=== PATIENT | male | born 1955 | race Caucasian/White ===

== ENCOUNTER → 2020-01-21 14:13 | Outpatient (CLI) | payer OTHER, SELFPAY ==
[2020-01-21 14:34] LABS: Anion Gap 2 (5-15); BUN 69 mg/dL (7-18); BUN/Creat Ratio 51.5 RATIO (10-20); Calcium,Total 8.1 mg/dL (8.5-10.1); Chloride 98 mmol/L (98-107); Creatinine, Serum 1.34 mg/dL (0.70-1.30); EST Glomerular Filtration Rate 57 mL/min (>60); Est Glom Filt Rate - Afr Amer 69 mL/min (>60); Glucose 117 mg/dL (74-106); Potassium 4.8 mmol/L (3.5-5.1); Sodium Level 139 mmol/L (136-145)
== END ==
PROVIDERS: PCP Family Medicine
DX: I25.10 Atherosclerotic heart disease of native coronary artery without angina pectoris (principal); M86.8X8 Other osteomyelitis, other site
CPT/HCPCS: 80048

== ENCOUNTER 2020-01-22 20:17 | Emergency (ER) | payer OTHER, SELFPAY ==
[2020-01-22] VITALS (17 sets, daily range): BP systolic 71–126; BP diastolic 25–81; PULSE 84–94; RESP 14–24; TEMP 36.3–37; O2SAT 90–98; BMI 42.0
--- NOTE | 2020-01-22 20:42 | EKG12_ITS ---
Test Reason : HYPOTENSION Blood Pressure : / mmHG Vent. Rate : 088 BPM Atrial Rate : 088 BPM P-R Int : 164 ms QRS Dur : 070 ms QT Int : 370 ms P-R-T Axes : 048 008 177 degrees QTc Int : 447 ms Normal sinus rhythm Possible Left atrial enlargement Possible Inferior infarct , age undetermined Abnormal ECG Confirmed by KAREL LEMUS, PETRA ([id number]), video tape editor GUILLERMINA FAJARDO ([id number]) on 01/25/2020 10:36:01 AM Referred By: MELISSA Confirmed By:PETRA VINSON MD
--- NOTE | 2020-01-22 20:49 | ED.VISSUMM ---
- ER Visit Summary Date of Service: 01/22/20 Chief Complaint: Hypotension and syncope at home History of Present Illness: The patient is a 64 M with past medical history of CAD with triple bypass at [facility] he had extensive postoperative course in which he coded. He developed a sternal infection. And intermittent episodes of A. fib for which he was cardioverted. He now has a wound VAC on. And he is anticoagulated on Eliquis. Reportedly according to his he has had diarrhea last couple days. And he was hypotensive today. He is also on iron and has dark stools. He denies any chest pain. He denies any fever. He denies any dysuria. Physical Examination: Older male initial blood pressure 89/36 temperature 97.5. 91% on oxygen. Relative hypoxia on oxygen. HEENT exam unremarkable. Neck nontender no JVD. Lungs clear to auscultation bilaterally. Heart regular rhythm rate about 90 no murmur. Chest wall sternotomy wound but appears to be healing with a wound VAC in place. Abdomen obese but soft nontender normal bowel sounds no peritoneal signs. No signs of obstruction. Extremities 2+ pitting edema both lower extremities which have been there for some time according to the patient that is not new. Neurologically is awake alert. He is answering questions and following commands. He has no focal motor deficits. Test Results: Chest x-ray status post tenotomy. Portable 1 view shows no acute abnormality. Elevated right hemidiaphragm. Otherwise unremarkable. No infiltrate. Relatively normal cardiac silhouette. EKG is normal sinus rhythm rate 88 unchanged from prior EKG from 2015. CBC white count of 16.8 hemoglobin of 3.4 consistent with acute GI bleed. Electrolytes gap at 9 BUN of 104 creatinine of 1.83 consistent with dehydration and upper GI bleed PT/INR of 20 and 1.8 he is on Eliquis this is not unexpected. UA normal. Lactic acid elevated 3.8. Troponin normal. Emergency Department Course and Treatment: Gentleman with extensive course after triple bypass surgery at [facility]. He is anticoagulated. Has had recent diarrhea. My concern for the hypotension is one potential GI bleed versus dehydration from diarrhea versus infection and/or possible sepsis. They be very unlikely to be a PE due to that he is on the Eliquis. He is also not having chest pain. And currently appears to be in a normal sinus rhythm so I do not think it secondary to his recent A. fib. Patient is going to receive a half a liter of normal saline bolus. Labs and x-ray and EKG. He will also be typed and crossed. Patient I went over all his test results. My concern is for his severe anemia secondary to GI bleed which I think is upper due to his elevated BUN. Also I did a rectal exam he is pitch black stool even with him being on iron I think this is a GI bleed. Patient has been typed and crossed for 6 units of blood he is currently receiving his first 2 units currently his pressure remains hypotensive with a systolic around 90 but he is awake alert and talking. He has had no nausea, vomiting or abdominal pain. Has had no hematemesis. Also due the patient being on Eliquis I feel the risk benefits of reversing this are more beneficial to him than the risk of clotting issue developing but that is a possibility. As far as I know he has no prosthetic valves. I have ordered Kcentra. I discussed this with the pharmacist. Treatment Plan: Currently I am trying to find a hospital that I could accept this patient. He is in need ICU care for the GI bleed. He will need gastroenterology. He will probably need cardiothoracic on backup even though I do not think that is an acute problem. I discussed his all with the patient and will with his family. Nurses of His up-to-date and she is on her way to the emergency department. I have spoken to her via phone. Where he had his surgery done at [facility] they currently have no beds. I am trying other facilities in the [facility] and other hospitals in [place]. Patient showing significant improvement after 4 units of blood transfusion. His current pressure is around 100 systolic. He is awake and alert. His is in the emergency department I discussed all his test results with her and the plan. I think we found the receiving hospital working with the [facility] will accept him. I spoken to their vp corporate partnerships. He will be transferred by helicopter [facility] transfer service and also [facility] working together to see who will actually provide transport for the patient. I again spoke to clear clients transport line. Due to the weather they are unable to fly. They are sending a ground critical care transport team down. Disposition: Transfer to [facility] ICU Impression: Acute hypotension secondary to GI bleed Acute severe anemia secondary to upper GI bleed Transfused 4 units of blood and receiving a 5th unit Acute syncope at home Status post triple bypass with sternal wound infection Anticoagulated on Eliquis History of A. fib This note was generated with [employer] dictation software. It may contain incorrect words, spelling, and punctuation that were not noted in review of the chart prior to signing ED Disposition - Plan for ED Patient: Referrals: Jose Luis Avalos MD [Primary Care Provider] -
[2020-01-22 21:02] LABS: Absolute Lymphocyte Count 1.44 X10^3/uL (0.83-4.51); Absolute Neutrophil Count 13.8 X10^3/uL (2.0-7.7); Basophil# 0.02 X10^3/uL; Basophil% 0.1 % (0-1); Eosinophil# 0.07 X10^3/uL; Eosinophils% 0.4 % (0-5); Hematocrit 12.3 % (40-54); Lymphocyte # 1.44 X10^3/ul (4.0); Lymphocyte % 8.6 % (19-41); Mean Corp Hgb Conc 27.6 g/dL (32-36); Mean Corpuscular Hgb 29.3 pg (27.0-32.0); Mean Platelet Vol. 9.7 fl (6.2-12.0); Monocyte# 1.12 X10^3/uL; Monocyte% 6.7 % (0-10); NRBC Flagged by Analyzer 1.9 % (0-5); Neutrophil % 82.4 % (47-70); POSITIVE COUNT YES; POSITIVE MORPHOLOGY YES; Platelet Count 239 K/mm3 (150-450); RBC Distribution Width CV 19.4 % (11.6-14.6); RBC Distribution Width SD 68.6 fl (35.1-43.9); Red Blood Count 1.16 M/mm3 (4.6-6.2); White Blood Count 16.8 K/mm3 (4.4-11.0)
[2020-01-22 21:03] LABS: Mucous, Urine 0 SEEN /hpf (<or=2+); Red Blood Cells-Urine 0 SEEN /hpf (0-5); Squamous Epithelial Cells - UA 0 SEEN /hpf (0-5); White Blood Cells 0 SEEN /hpf (0-5)
[2020-01-22 21:04] LABS: Differential Indicated SCAN CRITERIA MET; Hemoglobin 3.4 g/dL (13.0-16.5)
[2020-01-22 21:05] LABS: International Normalized Ratio 1.8; Prothrombin Time (Protime)PT. 20.1 SECONDS (11.7-14.9)
[2020-01-22 21:07] LABS: ALB/GLOB Ratio 0.6 RATIO (0.9-2.4); AST(SGOT) 9 U/L (15-37); Alanine Aminotransfer ALT/SGPT 16 U/L (16-61); Albumin, Serum 1.8 g/dL (3.2-5.0); Alkaline Phosphatase 80 U/L (45-117); Anion Gap 9 (5-15); BUN 104 mg/dL (7-18); BUN/Creat Ratio 56.8 RATIO (10-20); Calcium,Total 7.8 mg/dL (8.5-10.1); Chloride 99 mmol/L (98-107); Creatinine, Serum 1.83 mg/dL (0.70-1.30); EST Glomerular Filtration Rate 40 mL/min (>60); Est Glom Filt Rate - Afr Amer 48 mL/min (>60); Estimated Creatinine Clearance 38.63 ml/min; Glucose 159 mg/dL (74-106); Potassium 4.6 mmol/L (3.5-5.1); Protein, Total 4.8 g/dL (6.4-8.2); Sodium Level 140 mmol/L (136-145)
[2020-01-22 21:10] LABS: Color, Urine Yellow (Yellow); Glucose, Dipstick Normal (Normal); Ketone-Dipstick Negative (Negative); Leukocyte Esterase-Dipstick Negative /ul (Negative); Nitrite-Dipstick Negative (Negative); Occult Blood-Urine Negative /ul (Negative); Protein-Dipstick Negative (Negative); Urine Bilirubin Dipstick Negative (Negative); Urine Clarity Clear (Clear); Urine Urobilinogen Normal (Normal)
--- NOTE | 2020-01-22 21:11 | ED.RN ---
HGB OF 3.4 AND BUN OF [address] LORD. VERBALIZES UNDERSTANDING AND NEW ORDERS ENTERED
[2020-01-22 21:13] LABS: Lactic Acid 3.8 mmol/L (0.4-1.9)
--- NOTE | 2020-01-22 21:15 | RAD_ITS ---
STUDY: X-RAY CHEST REASON FOR EXAM: Male, 64 years old. Hypotension, triple bypass surgery 12/11, COPD. TECHNIQUE: 1 view COMPARISON: None. FINDINGS: Right PICC ends in the distal superior vena cava. Mild elevation right diaphragm. Mild bibasilar atelectatic versus chronic changes. Upper mid lung zones are clear. Normal size heart. Status post prior midline sternotomy. Normal visualized pulmonary arteries. Mild elongation of the thoracic aorta. Normal visualized thoracic spine. Normal visualized ribs, clavicles, and shoulders. There is no demonstrated abnormality of the visualized soft tissue structures of the upper abdomen. RAD/Chest 1 View (Portable) IMPRESSION: Limited inspiration with a mild chronic elevation of the right diaphragm. Mild bibasilar chronic versus atelectatic changes without other major consolidation, other infiltrates or evidence of substantial pleural effusion. Normal cardiac size status post prior midline sternotomy without pulmonary venous congestion. Electronically Signed: Rajni Monroe MD at 21:38 EST , Service support ,
[2020-01-22 21:16] LABS: Bacteria RARE /hpf (None Seen)
[2020-01-22 21:29] LABS: Differential Comment SCANNED
--- NOTE | 2020-01-22 22:05 | ED.RN ---
CONTACTED - JONATHAN AND GAVE UPDATE. GAVE PERMISSION TO COME VISIT WITH HER IN ED [facility].
[2020-01-22] MEDS: DiphenhydrAMINE 50 MG/ML Syringe 25 MG IV (22:09)
[2020-01-22 22:35] LABS: Hematocrit 19.2 % (40-54); Mean Corp Hgb Conc 30.2 g/dL (32-36); Mean Corpuscular Volume 102.7 fL (80-94); Mean Platelet Vol. 9.8 fl (6.2-12.0); POSITIVE COUNT YES; Platelet Count 234 K/mm3 (150-450); RBC Distribution Width CV 16.8 % (11.6-14.6); RBC Distribution Width SD 59.5 fl (35.1-43.9); Red Blood Count 1.87 M/mm3 (4.6-6.2); White Blood Count 17.9 K/mm3 (4.4-11.0)
[2020-01-22 22:38] LABS: Scan Indicated on CBC? Y/N NO
[2020-01-22 22:39] LABS: Hemoglobin 5.8 g/dL (13.0-16.5)
[2020-01-22] MEDS: HUMAN PROTHROMBIN COMPLX IV (22:52)
[2020-01-22] MEDS: VIAFLEX IV (22:52)
[2020-01-23 00:06] VITALS: BP 98/67; PULSE 83; RESP 24; TEMP 37
[2020-01-23 00:10] VITALS: BP 117/81; PULSE 86; RESP 22; TEMP 36.9
[2020-01-23 00:21] VITALS: BP 102/71; PULSE 87; RESP 24; TEMP 36.8
[2020-01-23 00:52] LABS: Reflex Lactate? Y
[2020-01-23 01:00] VITALS: BP 107/56; PULSE 85; RESP 24
[2020-01-23 02:13] VITALS: BP 90/56; PULSE 87; RESP 24; TEMP 36.8
[2020-01-23 13:38] LABS: Pathologist Review Reviewed
[2020-01-23 13:38] LABS: Pathologist Review Reviewed
== END 2020-01-23 02:15 | disposition short-term general hospital (02) ==
PROVIDERS: Emergency Provider Emergency Medicine; PCP Family Medicine
DX: I95.9 Hypotension, unspecified (principal); K92.2 Gastrointestinal hemorrhage, unspecified; D50.0 Iron deficiency anemia secondary to blood loss (chronic); R55 Syncope and collapse; I25.10 Atherosclerotic heart disease of native coronary artery without angina pectoris; I48.91 Unspecified atrial fibrillation; J44.9 Chronic obstructive pulmonary disease, unspecified; Z79.01 Long term (current) use of anticoagulants
CPT/HCPCS: 36430; 36592; 51702; 71045; 80053; 81001; 83605; 84484; 85025; 85027; 85610; 86850; 86900; 86901; 86920; 86921; 86922; 87040; 87426; 93005; 96365; 96375; 99285; C9132; J7030; J7040; J7050; P9016; A4216; J3490

== ENCOUNTER → 2020-03-26 13:02 | Outpatient (CLI) | payer OTHER, SELFPAY ==
[2020-01-22 20:20] VITALS: BMI 42.0
--- NOTE | 2020-03-26 13:06 | CR.ITP_ITS ---
Diagnosis - General Information Admitting Diagnosis: S/P CABG @ [facility] DR. MILTON Secondary Diagnosis: CAD, EMPHYSEMA, HTN, HLD, PAROXYSMAL ATRIAL FIBRILLATION POST OP CABG. Personal Learning Style:: Audio/Visual, Written Barriers to Learning: Vision Impairment Stage of change r/t lifestyle modifications:: Contemplation Gave educational material for:: Treating Heart Disease, Emotions & Heart Di sease, Stress Management & Relaxation, Sleep Disorders & Heart Disease, How The Heart Works, What it means to have Heart Disease, How Coronary Artery Disease is Diagnosed, Heart Procedures, What Heart Medications Do, Risk Factors & Modifications, Living an Active Life, Nutrition - Education/Goals Individual Counseling: Initial Assessment: Abnormal Cholesterol Levels, High Blood Pressure, Overweight/Obesity, Hypertension, Sedentary Lifestyle Cardiac Rehabilitation Goals: 1. Maintain the individual as the primary focus of care. 2. To improve the patient's quality of life. 3. Identification of cardiac risk factors and provide cardiac risk factor management. 4. Enhance the psychosocial status of the patient. 5. Reconditioning enough to allow the patient to resume customary activities. 6. Control symptoms of cardiac disease Personal Goals: Initial Assessment: Improve management of stress and emotions, Improve energy level, Participate in home exercise program, Get back to work, or to resume activities faster, Improve knowledge of cardiac disease, Improve muscle strength and endurance, Improve diet and eating habits (eat healthier), Control risk factors (learn risk factor modification) Scale for measuring improvement of personal goals: Enter appropriate number in Comments. 2 = Unchanged. 3 = Slightly Better. 4 = Moderate Improvement. 5 = Met my Goal - Diagnosis & Disease Process Outcomes/Goals: Pt IDs own risk factors & lifestyle modifications by Session 10, Verbalizes symptoms of angina & response by session 3., Pt independently manages Plan/Interventions: Assist Pt to ID & engage in lifestyle modification to reduce CVD risk, Instruct on individual risk factors, Review symptoms of angina & emergency actions, Review secondary diagnosis & identify educational needs. - Safety Referral to Physical Therapy: No Referral to [facility] Case Management: No Fall Risk Assessed:: Yes Assistive Devices:: None Exercise - Initial Assessment - Visit Date of Eval: 03/26/20 Session #:: 0 - PRE-CARDIAC REHAB Mets: Pre-: >5 METS for 30 minutes by discharge - Physician Prescribed Exercise Modalities: Treadmill, Airdyne, NuStep, SciFit Frequency: 3x/week for 12 weeks [36 sessions] Intensity: 60-80% of age predicted maximum heart rate reserve Target Heart Rate:: 102-133 Resting Blood Pressure: 160/94 EKG Type: NORMAL SINUS RHYTHM - Outcomes & Goals Goals:: Verbalizes understanding of THR, RPE & goal METS by session 6, Documents in home exercise log/reports 30 min aerobic 5 day/wk by DC, Demonstrates accurate pulse taking by DC - Intervention & Plan Exercise Program Goals: Instruct on personal THR & RPE, Instruct on MET level & personal MET goal, Show patient to take own pulse /validate performance until accurate, Instruct on home exercise - Physical Activity Home Exercise Physical Activity - Home Exercise: Safe Exercise, Warm-up, Self-monitoring, Cool-Down, Home Exercise > 30 min Daily, Sitting Time <3 hours/daily - Outcomes & Goals Outcomes/Goals: Demonstrates correct Warm-up/exercise Cool-Down (S3) if = 2.5 METs, Verbalizes symptoms of exercise intolerance by Session 3 (S3), Demonstrate safe equipment use (S3) & follows exercise prescrition (6) - Intervention & Plan Plan/Intervention: Instruct warm-up & cool-down if exercising at > 2 METs, Instruct on symptoms of exercise intolerance & actions to take, Instruct & monitor on saf, Assess intial functional capacity & safety risk Nutrition - Initial Assessment - Program Goals Nutrition Program Goals: LDL <100 optimal. 100 - 129 Near optimal. 130 - 159 Borderline High. 160 - 189 High. Total Cholesterol <200 desirable. 200 - 239 Borderline High. >/= 240 High. HDL < 40 Low >/=60 High. Triglycerides <150 desirable. <199 optimal. VlDL 5 - 40. HgbA1C <7%. BMI <25 Patient has diagnosis of Hyperlipidemia (ICD E78)?: Yes - Visit Date of Assessment:: 03/26/20 Session #:: 0 - PRE-CARDIAC REHAB - Cholesterol/Lipids Triglycerides (mg/dL): 60 - 08/06/2019 Total Cholesterol (mg/dL): 150 LDL Cholesterol (mg/dL): 115 HDL Cholesterol (mg/dL): 36 Determine presence & major risk factors that modify LDL goal: Hypertension or hypertensive medication, Low HDL cholesterol <40 mg/dL*, Family history of premature CHD in Male < 55 years: female <65 yearsFa, Age men > 45 years; women >/= 55 years Outcomes/Goals: Pt IDs own risk factors & lifestyle modifications by Session 10, Verbalizes symptoms of angina & response by session 3., Pt independently manages Intervention/Plan: Instruct on personal lipid levels & lipid goals/NCEP guidelines, Instruct on cholesterol Referral to dietitian:: Yes - Diabetes (Other Core Measures) Diabetes Type: Not Applicable - Weight Mgt (Other Care) Not Applicable: No Height: 5 ft 7 in Weight:: 244 lb BMI: 38.2 Diagnosis Overweight/Obesity BMI> 30% ICD-10 E66: Yes Diagnosis High BMI/Morbid Obesity BMI> 35% ICD-10 Z68: Yes Outcomes/Goals: Pt sets, maintains & shows weight loss goal & trend during rehab Intervention/Plan: Instruct on ideal BMI & set weight loss goal w/patient, Assist pt to ID & incorporate diet changes for weight loss by S9, Refer to Structured Weight Loss program as appropriate, Encourage goal of using 250- 300dcal per session for weight loss - Healthy Eating Habits Will attend diet classes:: Yes Outcomes/Goals:: Consume diet rich in vegs,fruits,whole grain/high fiber,fish,lean meat, Limit sat/trans fats,cholesterol & added salts & sugars Intervention/Plan:: Assess current eating habits - Education Gave educational materials for:: Healthy eating Medical - Initial Assessment - Visit Date of Eval: 03/26/20 Session #:: 0 - PRE-CARDIAC REHAB - Medication Compliance Preventative Medication(s):: Aspirin, ANTOINETTE inhibitor, Statin/lipid, Beta yany, Eliquis H/O mental health issues: depression, anxiety, or addiction?: Yes Doesn?t believe in the benefits of treatment?: No Believes medications are unnecessary or harmful?: No Has a concern about medication side effects?: No Expresses concern over the cost of medications?: No Outcomes/Goals: Verbalizes medications,desired effect & common side effects @ DC, Pt self-reports following medication regimen, Keeps card in wallet w/medications listed by DC Interventions/plans: Instruct on medication effects & side effects, Review medication list w/patient every two weeks, Instruct importance of taking meds as ordered & assist problem solving - Tobacco Use Tobacco Use: Cigarettes How long ago did you quit using tobacco products?: Less than 6 months ago How many cigarettes do you smoke per day?: 15 Years Smokin Do you use smokeless tobacco?: No Outcomes/Goals: Smoking cessation achieved or maintained by discharge, Identify aids/strategies for achieving smoking cessation by session 6 Interventions/plan: Instruct on effects of smoking & provide smoking cessation resource, Assist pt to set quit date & provide encouragement, Assist pt to develop strategies to achieve/maintain quit date, Assist pt w/nicotine replacement & medication for cessation success - Hypertension Hypertension Diagnosis:: Hypertension ICD-10 I10 Resting Blood Pressure:: 160/94 [place] [employer] Hypertension Guidelines: [place] [employer] Hypertension Guidelines. Normal BP Less than 120/80. Elevated BP 120/80. Hypertension Stage 1: BP 130-139/80-89. Hypertesnion Stage 2: BP 140 or higher/90 or higher. Hypertension Crisis: BP higher than 180/120 Outcomes/Goals: Able to verbalize/achieve optimal blood pressure <130/80, Incorporates diet changes & exercise for blood pressure control by DC Interventions/plan: Instruct on optimal blood pressure, hypertension & medications, Instruct on effects of sodium, alcohol, stress, exercise &hypertens ion - Tobacco Cessation Referral Smoking Cessation Referral:: Yes - NEEDS REINFORCED Individual Education/Counseling:: Yes Education Schedule Given:: Yes Psychosocial - Initial Assess - VIsit Date of Eval: 03/26/20 Session #:: 0 - PRE-CARDIAC REHAB Not Applicable: No History of previous Mental disease:: Yes History of Emotional Disorders: Depression Self-reported stressors: Medical/Health, Recent Illness - Target Goals Target Goals: Assess presence or absence of depression. Using a valid screening tool, maximizes coping skills. Positive support system - Psychosocial Test Tool Used:: Shiraans Rubio QOL Cardiac, PHQ-9 Questionnaire phq-9 Severity: Severity. 1-4 Minimal Depression. 5-9 Mild Depression. 10-14 Moderate Depression. 15-19 Moderately Sever Depression. 20-27 Severe Depression. Rule: - Referral to Behavioral Health PS - Interventions: Yes Attend Stress Management Classes, No Referral to Behavioral Health if PHQ-9 score >9:, No Referral to [facility], No Referral to Physician if PHQ-9 if score is 5-9: - Outcomes/Goals: See list Psychosocial Outcomes/Goals:: ID's personal stressors & 2 strategies to manage stress by discharge - Intervention/Plan: See List Interventions/Plan:: Assess stressors,coping strategies & signs of derpression on admission, Instruct/assist pt to develop coping & personal stress Mgt strategies, Instruct patient to recognize signs & symptoms of depression, Instruct patient to recog Patient Health Questionnaire Initial Assessment 1. Little interest or pleasure in doing things: More than half the days 2. Feeling down, depressed, or hopeless: Not at all 3. Trouble falling or staying asleep, or sleeping too much: More than half the days 4. Feeling tired or having little energy: More than half the days 5. Poor appetite or overeating: More than half the days 6. Feeling bad about yourself -- or that you are a failure or have let yourself or your family down: More than half the days 7. Trouble concentrating on things, such as reading the newspaper or watching television: Not at all 8. Moving or speaking so slowly that other people could have noticed. Or the opposite - being so fidgety or restless that you have been moving around a lot more than usual: Several days 9. Thoughts that you would be better off , or of hurting yourself in some way: Several days How difficult have these problems made it for you to do your work, take care of things at home, or get along with other people?: Somewhat difficult - Patient could benefit from counseling or physician intervention for depression indicated on PHQ-9 Total Score: 12 EASTON-Q SV Test - Statements CAD is a disease of the arteries in the heart: True Examples of risk factors for heart disease: True Angina is chest pain or discomfort: I Don't Know The benefits of resistance training include: True Eating more meat and dairy products: True Anti-platelet medications such as aspirin are important: I Don't Know The only effective way to manage stress: True An exercise warm-up slowly increases heart rate: True Prepared, processed foods usually have high sodium: True Depression is common after a heart attack: I Don't Know The statin medications lower cholesterol: False To control blood pressure, lower the amount of sodium: I Don't Know If someone gets chest discomfort during walking: False Transfats are partially hydrogenated vegetable oils: True Sleep apnea that is not treated increases the risk: I Don't Know To control cholesterol, one should become a vegetarian: True Someone knows if he/she is exercising at the right level: I Don't Know Diabetes cannot be prevented with exercise & health eating: True Stress is a large risk for heart attack: True A diet that can help lower blood pressure is rich in: True - Total Score Total Correct Responses: 8 Self-Efficacy Initial Assessment We would like to know how confident you are in doing certain activities. Please select your confidence level for:: Select your confidence level for the following using the scale 1-10 where 1 is not at all confident and 10 is totally confident. Your score is the average of all 6 responses. Fatigue: How confident are you that you can keep the fatigue caused by your disease from interfering with the things you want to do? Select Number: 9 Physical Discomfort or Pain: How confident are you that you can keep the physical discomfort or pain of your disease from interfering with the things you want to do? Select Number: 10 Emotional Distress: How confident are you that you can keep the emotional distress caused by your disease from interfering with the things you want to do? Select Number: 10 Other Symptoms or Health Problems: How confident are you that you can keep other symptoms or health problems from interfering with the things you want to do? Select Number: 8 Different Tasks and Activities: How confident are you that you can do the different tasks and activities needed to manage your health condition so as to reduce your need to see a doctor? Select Number: 8 Medication: How confident are you that you can do things other than just taking medication to reduce how much your illness affects your everyday life? Select Number: 9 Total Score:: 9 Nutrition Survey - Nutrition Survey Instructions Scoring Instructions: Scoring is as follows: Yes = 1 points. No = 0 point. Patient score that is >/=12 is considered to be at potential nutritional risk and could benefit from a referral to a registered dietitian. - Nutrition Survey Initial Have you lost >10 lbs over the past 2 months without trying?: Yes Are you following a special diet at home for diabetes, low fat, or low salt?: Yes Are you interested in meeting with a dietitian for help understanding your diet?: Yes Do you eat less than 3 meals a day?: Yes Do you eat fatty meats (ruggiero, sausage, ribs, etc), fried foods, desserts, large amounts of salad dressings, margarine, butter, or cheese most days?: Yes Do you have food allergies? [Enter types in comment field]: No Do you eat in restaurants more than 3 times a week?: Yes Do you season food with salt, seasoning salt, or garlic salt?: No Do you used canned, boxed, frozen meals, or soups, seasoning packets?: Yes Total Score:: 7
--- NOTE | 2020-03-26 13:06 | CR.HP_ITS ---
CR - History & Physical - General Arrival date:: 03/26/20 Arrival time:: 13:07 Date of Referral:: 03/21/20 Date of CR Evaluation:: 03/26/20 Referring Physician: DR. ANTONINA / DR. MILTON Primary Diagnosis: S/P CABG - History of Present Cardiac Event Onset Date: Enter Onset Date of cardiac illnesses in Comment field below Coronary Artery Bypass Graft:: Yes - 12/12/2019 Were there any complications?: Back in ICU after 27 days due to GI bleed, paroxysmal atrial fib w/cardiove - Medications Home Medications: Ambulatory Orders Medication Instructions Recorded Acetaminophen [Tylenol Extra 1,000 mg PO Q8H PRN 01/22/20 Strength] Albuterol Inhaler [Ventolin Hfa 2 puff INHALATION Q4H PRN PRN 01/22/20 (SP)] Amiodarone HCl 400 mg PO DAILY 01/22/20 Apixaban [Eliquis] 5 mg PO BID 01/22/20 Ascorbic Acid 500 mg PO BID 01/22/20 Atorvastatin Calcium [Lipitor] 40 mg PO QHS 01/22/20 Ertapenem Sodium [Ertapenem] 1 gm IV DAILY 01/22/20 Ferrous Sulfate 325 mg PO DAILY 01/22/20 Folic Acid 1 mg PO DAILY 01/22/20 Furosemide [Lasix] 80 mg PO BIDLX 01/22/20 Metoprolol Succinate [Toprol Xl] 50 mg PO DAILY 01/22/20 Polyethylene Glycol 3350 [Miralax] 17 gm PO DAILY 01/22/20 Potassium Chloride 20 meq PO DAILY 01/22/20 Sennosides/Docusate Sodium 1 ea PO BID 01/22/20 [Senna-Docusate Sodium Tablet] Sitagliptin Phosphate [Januvia] 100 mg PO DAILY 01/22/20 Tiotropium [place] [Spiriva 4 gm IH DAILY 01/22/20 Respimat] Vancomycin HCl in 5 % Dextrose 1.5 gm IV DAILY 01/22/20 [Vancomycin 1.5 Gram/250 ml-D5w] traMADol [Ultram (G)] 50 mg PO Q6H PRN PRN 01/22/20 Albuterol IH (ProAir) [Proair Hfa 1 - 2 puff INHALATION Q4H PRN PRN 03/26/20 (SP)Vent Pts] Amiodarone HCl [Cordarone] 200 mg PO DAILY 03/26/20 Apixaban [Eliquis] 5 mg PO BID 03/26/20 Atorvastatin Calcium [Lipitor] 40 mg PO QHS 03/26/20 Carvedilol 50 mg PO BID 03/26/20 Guaifenesin [Mucinex] 600 mg PO Q12H 03/26/20 Tiotropium [place] [Spiriva 4 gm IH 03/26/20 Respimat] - Allergies Allergies/Adverse Reactions: Allergies No Known Allergies Allergy (Verified 01/22/20 20:19) - Sleep Disorder Evaluation Hx of Sleep Apnea: No Do you snore loudly (louder than talking or can be heard through closed doors)?: No Do you often feel tired/ fatigued/ sleepy during daytime?: Yes - only since the surgery Has anyone observed you stop breathing during sleep?: No History of Hypertension (for STOP score): Yes STOP Results: Positive Advanced Directives - Advanced Directives Power of Grid Trimmer: Yes - is Durable POA Healthcare for patient Living Will: No Advance Directives Information Provided: No Advance Directives on File: No DNR Order?:: No - MOLST See MOLST form: No Past Medical History - Covid-19 Screening Fever: No Unexplained muscle aches: No Current respiratory symptoms: Yes - H/O EMPHYSEMA shortness of breath w/activity Upper respiratory infections symptoms: No Gastro-intestinal symptoms: Yes - recent GI bleed [id number] symptoms: No Has tested positive for COVID-19 in last 30 days: No 65 years or older:: No Lives in Assisted Living facility:: No Has a chronic lung disease or moderate to severe asthma:: Yes Has a serious heart condition:: Yes Immunocompromised:: Yes Severely obese (Body Mass Index of 40 or higher):: Yes Diabetic:: No Has chronic kidney disease undergoing dialysis:: Yes Has liver disease:: No - Past Medical Illness Medical History: Past Medical History (Last Updated 03/26/20 @ 13:31 by Osmin Muhammad, CRYSTAL REPORT DEVELOPER, SHEET METAL FABRICATOR, BS) CAD (coronary artery disease) I25.10 Emphysema of lung J43.9 External bleeding hemorrhoids K64.4 Former heavy cigarette smoker (20-39 per day) Z87.891 History of cardioversion Z98.890 Mixed hyperlipidemia E78.2 Normal colonoscopy Paroxysmal atrial fibrillation I48.0 Hypertension I10 - Past Surgical History Surgical History: Past Surgical History (Last Updated 03/26/20 @ 13:30 by Osmin Muhammad, CRYSTAL REPORT DEVELOPER, SHEET METAL FABRICATOR, BS) H/O arthroscopic knee surgery Z98.890 H/O hernia repair Z98.890, Z87.19 S/P CABG (coronary artery bypass graft) Z95.1 Status post PICC central line placement Z95.828 Social History - Smoking History Smoking Status: Former smoker Years Smokin Packs Smoked per Day: 1.5 - 2.0 at most Hx Smoking Cessation Date: 07/31/98 Hx Tobacco Use: Yes Hx Smoking Exposure: Yes - Alcohol Use Alcohol Usage: Yes - Substance Abuse Hx Substance Use: No - Occupation Occupation (List type of work in comments):: Employed Hours worked per day:: 3 Returned to work on:: 03/12/20 - Hobbies, Recreation, Social Activities Hobbies: Sports - golfing, Other - fixing up old cars, traveling Recreational Activities: I am able to engage in most, but not all activities Social Environment - Status Marital Status: - Current Living Arrangements Living Environment:: Spouse - Children How many children do you have?: 2 - grandson lives with family Do any of your children live nearby?: Yes - Safety Do you feel safe in your surroundings?: Yes - Assistance Do you need any assistance at home?: none Review of Systems - Review of Systems Hints: Right click = Denies ([place]). Left click = Reports ([place]) Review of Present Symptoms: Reports: Shortness of Breath with Exertion, Fatigue, Heart Arrhythmia/Irregularities - paroxysmal atrial fibrillation s/p cabg resolved with cardioversion., Appetite - Special Diet. Denies: Shortness of Breath at Rest, Wound Healing - very small area on chest still open, Dizziness/Lightheadedness, Appetite - Normal - have an appetite but food just doesn't have a flavorful taste., Sleep - Normal - since been int [facility] have not been able to get a good nights sleep. Off/On 2-3 hours then awake., Sexual Changes - Pain Is Patient Pain Free?: Yes Pain Location: none Pain Level: 0/10 Risk Factor Assessment - Chief Complaint Chief Complaint: Patient is a [address] Milton who is referred to [facility] Cardiac Rehab today following recent S/P CABG at [facility] in 12/2019. Patient states he will be establishing cardiac follow-up care with Dr. Sacha Aragon at [facility] [place]. - Vital Signs Temperature: 97.3 F Respiratory Rate: 22 Blood Pressure: 160/94 Nailbeds:: dirty - Pulse Pulse Rate: 77 Pulse Rhythm: Regular - Hypertension Blood Pressure Sitting - Left Arm: 160/94 - Stress Stress: Recent - Blood Cholesterol/Lipids Total Cholesterol (mg/dL) Goal = less than 200 mg/dL: 150 - 08/06/2019 HDL Cholesterol (mg/dL) Goal = less than 40 mg/dL: 36 LDL Cholesterol (mg/dL) Goal = less than 70 mg/dL: 115 Triglycerides (mg/dL) Goal = less than 150 mg/dL: 60 - Diabetes Nutrition Referral for Diabetes: No - Obesity Height: 5 ft 7 in Weight:: 244 lb Weight in Pounds: 244.0 lbs Weight Source: Standing Scale Body Mass Index (BMI): 38.2 Nutritional Referral for Obesity: Yes - Physical Inactivity Physical Inactivity: None - Risk Stratification Risk Guidelines: Lowest Risk: Risk Factor for Diabetes, Moderate Risk: Risk Factor for Dyslipidemia, Risk Factor for Depression, Highest Risk: Risk Factor for Smoking, Risk Factor for Obesity, Risk Factor for Hypertension, Risk Factor for Sedentary Lifestyle - For Smoking Smoking Risk Guidelines: Smoking Low Risk: None or quit greater than 6 months ago. Smoking Moderate Risk: Smoker or quit 6 months or less ago. Smoking High Risk: Smoker - For Dyslipidemia Dyslipidemia Risk Guidelines: Low Risk: Moderate Risk: High Risk: 15-25% fat 25.1-29% fat >/= 30% fat. <7% sat fat 7-9% sat fat >9% sat fat. <150 mg chol 150-299 mg chol >/= 300 mg chol. LDL <100 LDL 100-129 LDL >/= 130. Chol/HDL ratio <5.0 Chol/HDL ratio 5.0-6.0 Chol/HDL ratio >6.0. Triglycerides <100 Triglycerides 100-149 Triglycerides >/= 150 - For Diabetes Mellitus Diabetes Risk Guidelines: Diabetes Low Risk: HgA1c <6.5% and/or FBG <120. Diabetes Moderate Risk: HgA1c 6.6-7.9% and/or FBG 120-180. Diabetes High Risk: HgA1c >/= 8% and/or FBG >180 - For Obesity/Overweight Obesity/Overweight Risk Guidelines: Obesity Low Risk: BMI <25.0. Obesity Moderate Risk: BMI 25-29.9. Obesity High Risk: BMI >/= 30.0 - For Hypertension Hypertension Risk Guidelines: Hypertension Low Risk: Systolic <120 and Diastolic <80. Hypertension Moderate Risk: Systolic 120-139 and Diastolic 80-89. Hypertension High Risk: Systolic >/= 140 and Diastolic >/= 90 - For Sedentary Lifestyle Sedentary Lifestyle Risk Guidelines: Sedentary Lifestyle Low Risk: >/= 1,500 kcal/week. Sedentary Lifestyle Moderate Risk: 700-1,499 kcal/week. Sedentary Lifestyle High Risk: < 700 kcal/week - For Depression Depression Risk Guidelines: Depression Low Risk: Not clinically depressed. Depression Moderate Risk: Mildly depressed. Depression High Risk: Clinically depressed Motivation - Motivation to Participate On a scale of 1 to 10, how prepared are you to commit to attending program?: 10 What do you see as barriers to successfully being able to complete the program?: none What do you see as the benefits of succesfully completing the program? In other words, what do you hope to get out of participating in the program?: getting healthier, getting back to my normal activity.
[2020-03-26 13:38] VITALS: BP 160/94; BMI 38.2
[2020-03-26 13:52] VITALS: BP 160/94; PULSE 77; RESP 22; TEMP 36.3; BMI 38.2
== END ==
PROVIDERS: PCP Family Medicine; Referring Provider Internal Medicine Cardiovascular Disease; Visit Provider Internal Medicine Cardiovascular Disease
DX: Z95.1 Presence of aortocoronary bypass graft (principal)

== ENCOUNTER 2020-04-27 13:00 | Outpatient (RCR) | payer OTHER, SELFPAY ==
[2020-03-26 13:38] VITALS: BMI 38.2
[2020-03-26 13:52] VITALS: BMI 38.2
== END 2020-04-29 23:59 ==
LOC: CR 13:00
PROVIDERS: PCP Family Medicine; Referring Provider Internal Medicine Cardiovascular Disease; Visit Provider Internal Medicine Cardiovascular Disease
DX: Z95.1 Presence of aortocoronary bypass graft (principal)
CPT/HCPCS: 93798

== ENCOUNTER 2020-05-30 13:00 | Outpatient (RCR) | payer OTHER, SELFPAY ==
[2020-03-26 13:38] VITALS: BMI 38.2
[2020-03-26 13:52] VITALS: BMI 38.2
--- NOTE | 2020-05-23 07:13 | CR.ITP_ITS ---
Exercise - 30-day Assessment - Visit Date of Eval: 05/23/20 Session #:: 16 - Started CR on 04/16/2020 - Physician Prescribed Exercise Modalities: Treadmill, NuStep, SciFit Frequency: 3x/week for 12 weeks [36 sessions] Intensity: 60-80% of age predicted maximum heart rate reserve Current METSs:: 3.5 increase from 2.3 Target Heart Rate:: 102-133 Current RPE:: 12 Maximum Excercise HR:: 88 Resting Blood Pressure: 102/80 Maximum Exercise Blood Pressure: 134/84 EKG Type: NSR with rare PVCs. - Outcomes & Goals Goals:: Verbalizes understanding of THR, RPE & goal METS by session 6, Documents in home exercise log/reports 30 min aerobic 5 day/wk by DC, Demonstrates accurate pulse taking by DC - Intervention & Plan Exercise Program Goals: Instruct on personal THR & RPE, Instruct on MET level & personal MET goal, Show patient to take own pulse /validate performance until accurate, Instruct on home exercise - 30-day Reassessments 30 day Reassessments:: Progressing - Physical Activity Home Exercise Physical Activity - Home Exercise: Safe Exercise, Warm-up, Self-monitoring, Cool-Down, Home Exercise > 30 min Daily, Sitting Time <3 hours/daily - Outcomes & Goals Outcomes/Goals: Demonstrates correct Warm-up/exercise Cool-Down (S3) if = 2.5 METs, Verbalizes symptoms of exercise intolerance by Session 3 (S3), Demonstrate safe equipment use (S3) & follows exercise prescrition (6) - Intervention & Plan Plan/Intervention: Instruct warm-up & cool-down if exercising at > 2 METs, Instruct on symptoms of exercise intolerance & actions to take, Instruct & monitor on saf, Assess intial functional capacity & safety risk - 30-day Reassessments 30 day Reassessments:: Progressing Nutrition - 30-Day Assessment - Program Goals Nutrition Program Goals: LDL <100 optimal. 100 - 129 Near optimal. 130 - 159 Borderline High. 160 - 189 High. Total Cholesterol <200 desirable. 200 - 239 Borderline High. >/= 240 High. HDL < 40 Low >/=60 High. Triglycerides <150 desirable. <199 optimal. VlDL 5 - 40. HgbA1C <7%. BMI <25 Patient has diagnosis of Hyperlipidemia (ICD E78)?: Yes - Visit Date of Assessment:: 05/23/20 Session #:: 16 - no lab available - Cholesterol/Lipids Determine presence & major risk factors that modify LDL goal: Hypertension or hypertensive medication, Family history of premature CHD in Male < 55 years: female <65 yearsFa, Age men > 45 years; women >/= 55 years Outcomes/Goals: Pt IDs own risk factors & lifestyle modifications by Session 10, Verbalizes symptoms of angina & response by session 3., Pt independently manages Intervention/Plan: Instruct on personal lipid levels & lipid goals/NCEP guidelines, Instruct on cholesterol Referral to dietitian:: Yes - Medical Nutrition Therapy 30-day Reassessments:: Progressing - Diabetes (Other Core Measures) Diabetes Type: Not Applicable - Weight Mgt (Other Care) Not Applicable: No Height: 5 ft 7 in Weight:: 242 lb 8 oz BMI: 38.0 Diagnosis Overweight/Obesity BMI> 30% ICD-10 E66: Yes Diagnosis High BMI/Morbid Obesity BMI> 35% ICD-10 Z68: Yes Outcomes/Goals: Pt sets, maintains & shows weight loss goal & trend during rehab Intervention/Plan: Instruct on ideal BMI & set weight loss goal w/patient, Assist pt to ID & incorporate diet changes for weight loss by S9, Refer to Structured Weight Loss program as appropriate, Encourage goal of using 250- 300dcal per session for weight loss 30 day Reassessments:: Progressing - Healthy Eating Habits Will attend diet classes:: Yes Outcomes/Goals:: Consume diet rich in vegs,fruits,whole grain/high fiber,f leelee,lean meat, Limit sat/trans fats,cholesterol & added salts & sugars Intervention/Plan:: Assess current eating habits 30-day Reassessments:: Progressing Medical- 30-Day Assessment - Visit Date of Eval: 05/23/20 Session #:: 16 - Medication Compliance Preventative Medication(s):: Aspirin H/O mental health issues: depression, anxiety, or addiction?: No Doesn?t believe in the benefits of treatment?: No Believes medications are unnecessary or harmful?: No Has a concern about medication side effects?: No Expresses concern over the cost of medications?: No Outcomes/Goals: Verbalizes medications,desired effect & common side effects @ DC, Pt self-reports following medication regimen, Keeps card in wallet w/medications listed by DC Interventions/plans: Instruct on medication effects & side effects, Review medication list w/patient every two weeks, Instruct importance of taking meds as ordered & assist problem solving 30-day Reassessments:: Progressing - Tobacco Use Tobacco Use: Non-smoker - Hypertension Hypertension Diagnosis:: Hypertension ICD-10 I10 Resting Blood Pressure:: 102/80 [place] [employer] Hypertension Guidelines: [place] [employer] Hypertension Guidelines. Normal BP Less than 120/80. Elevated BP 120/80. Hypertension Stage 1: BP 130-139/80-89. Hypertesnion Stage 2: BP 140 or higher/90 or higher. Hypertension Crisis: BP higher than 180/120 Peak Exercise Blood Pressure:: 134/84 Outcomes/Goals: Able to verbalize/achieve optimal blood pressure <130/80, Incorporates diet changes & exercise for blood pressure control by DC Interventions/plan: Instruct on optimal blood pressure, hypertension & medications, Instruct on effects of sodium, alcohol, stress, exercise &hypertension 30 day Reassessments:: Progressing - Tobacco Cessation Referral Smoking Cessation Referral:: No Individual Education/Counseling:: No Education Schedule Given:: Yes Psychosocial - 30-Day Assess - VIsit Date of Eval: 05/23/20 Session #:: 16 Not Applicable: Yes History of previous Mental disease:: No - Target Goals Target Goals: Assess presence or absence of depression. Using a valid screening tool, maximizes coping skills. Positive support system - Psychosocial Test Tool Used:: PHQ-9 Questionnaire phq-9 Severity: Severity. 1-4 Minimal Depression. 5-9 Mild Depression. 10-14 Moderate Depression. 15-19 Moderately Sever Depression. 20-27 Severe Depression. Rule: - Referral to Behavioral Health PS - Interventions: Yes Attend Stress Management Classes, No Referral to Behavioral Health if PHQ-9 score >9:, No Referral to [facility], No Referral to Physician if PHQ-9 if score is 5-9: - Outcomes/Goals: See list Psychosocial Outcomes/Goals:: ID's personal stressors & 2 strategies to manage stress by discharge - Intervention/Plan: See List Interventions/Plan:: Assess stressors,coping strategies & signs of derpression on admission, Instruct/assist pt to develop coping & personal stress Mgt s trategies, Instruct patient to recognize signs & symptoms of depression, Instruct patient to recog - 30-day Reassessments: 30 day Reassessments:: Progressing Patient Health Questionnaire 30-Day Re-eval Assessment 1. Little interest or pleasure in doing things: Several days 2. Feeling down, depressed, or hopeless: Not at all 3. Trouble falling or staying asleep, or sleeping too much: Several days 4. Feeling tired or having little energy: Several days 5. Poor appetite or overeating: Several days 6. Feeling bad about yourself -- or that you are a failure or have let yourself or your family down: Several days 7. Trouble concentrating on things, such as reading the newspaper or watching television: Several days 8. Moving or speaking so slowly that other people could have noticed. Or the opposite - being so fidgety or restless that you have been moving around a lot more than usual: Several days 9. Thoughts that you would be better off , or of hurting yourself in some way: Not at all Total Score: 7 Self-Efficacy 30-Day Re-eval Assessment We would like to know how confident you are in doing certain activities. Please select your confidence level for:: Select your confidence level for the following using the scale 1-10 where 1 is not at all confident and 10 is totally confident. Your score is the average of all 6 responses. Fatigue: How confident are you that you can keep the fatigue caused by your disease from interfering with the things you want to do? Select Number: 9 Physical Discomfort or Pain: How confident are you that you can keep the physical discomfort or pain of your disease from interfering with the things you want to do? Select Number: 10 Emotional Distress: How confident are you that you can keep the emotional distress caused by your disease from interfering with the things you want to do? Select Number: 10 Other Symptoms or Health Problems: How confident are you that you can keep other symptoms or health problems from interfering with the things you want to do? Select Number: 8 Different Tasks and Activities: How confident are you that you can do the different tasks and activities needed to manage your health condition so as to reduce your need to see a doctor? Select Number: 9 Medication: How confident are you that you can do things other than just taking medication to reduce how much your illness affects your everyday life? Select Number: 9 Total Score:: 9
[2020-05-23 07:34] VITALS: BP 102/80; BP 134/84; BMI 38.0
== END 2020-05-30 23:59 ==
LOC: CR 13:00
PROVIDERS: PCP Family Medicine; Referring Provider Internal Medicine Cardiovascular Disease; Visit Provider Internal Medicine Cardiovascular Disease
DX: Z95.1 Presence of aortocoronary bypass graft (principal)
CPT/HCPCS: 93798

== ENCOUNTER 2020-06-29 13:00 | Outpatient (RCR) | payer OTHER, SELFPAY ==
[2020-03-26 13:52] VITALS: BMI 38.2
[2020-05-23 07:34] VITALS: BMI 38.0
[2020-05-31 00:20] VITALS: BP 102/80; BP 134/84
--- NOTE | 2020-06-22 06:57 | CR.ITP_ITS ---
Exercise - 90-day Assessment - Visit Date of Eval: 06/22/20 Session #:: 29 Comments:: 100% compliant - Physician Prescribed Exercise Modalities: Treadmill, Airdyne, NuStep, SciFit Frequency: 3x/week for 12 weeks [36 sessions] Intensity: 60-80% of age predicted maximum heart rate reserve Current METSs:: 3.5 unchanged due to desaturation SpO2 < 90% with 4 liters O2. Target Heart Rate:: 102-133 Current RPE:: 12-13 Maximum Excercise HR:: 100 Resting Blood Pressure: 142/76 - elevated with medications Maximum Exercise Blood Pressure: 158/76 EKG Type: NSR to sinus tach with rare PVCs. - Outcomes & Goals Goals:: Verbalizes understanding of THR, RPE & goal METS by session 6, Documents in home exercise log/reports 30 min aerobic 5 day/wk by DC, Demonstrates accurate pulse taking by DC - Intervention & Plan Exercise Program Goals: Instruct on personal THR & RPE, Instruct on MET level & personal MET goal, Show patient to take own pulse /validate performance until accurate, Instruct on home exercise - 30-day Reassessments 30 day Reassessments:: Progressing - Physical Activity Home Exercise Physical Activity - Home Exercise: Safe Exercise, Warm-up, Self-monitoring, Cool-Down, Home Exercise > 30 min Daily, Sitting Time <3 hours/daily - Outcomes & Goals Outcomes/Goals: Demonstrates correct Warm-up/exercise Cool-Down (S3) if = 2.5 METs, Verbalizes symptoms of exercise intolerance by Session 3 (S3), Demonstrate safe equipment use (S3) & follows exercise prescrition (6) - Intervention & Plan Plan/Intervention: Instruct warm-up & cool-down if exercising at > 2 METs, Instruct on symptoms of exercise intolerance & actions to take, Instruct & monitor on saf, Assess intial functional capacity & safety risk - 30-day Reassessments 30 day Reassessments:: Progressing Nutrition - 60-Day Assessment - Program Goals Nutrition Program Goals: LDL <100 optimal. 100 - 129 Near optimal. 130 - 159 Borderline High. 160 - 189 High. Total Cholesterol <200 desirable. 200 - 239 Borderline High. >/= 240 High. HDL < 40 Low >/=60 High. Triglycerides <150 desirable. <199 optimal. VlDL 5 - 40. HgbA1C <7%. BMI <25 Patient has diagnosis of Hyperlipidemia (ICD E78)?: Yes - Visit Date of Assessment:: 06/22/20 - no lab available Session #:: 29 - Cholesterol/Lipids Determine presence & major risk factors that modify LDL goal: Cigarette smoking, Hypertension or hypertensive medication, Family history of premature CHD in Male < 55 years: female <65 yearsFa, Age men > 45 years; women >/= 55 years Outcomes/Goals: Pt IDs own risk factors & lifestyle modifications by Session 10, Verbalizes symptoms of angina & response by session 3., Pt independently manages Intervention/Plan: Instruct on personal lipid levels & lipid goals/NCEP guidelines, Instruct on cholesterol Referral to dietitian:: Yes 30-day Reassessments:: Progressing - Diabetes (Other Core Measures) Diabetes Type: Not Applicable - Weight Mgt (Other Care) Not Applicable: No Height: 5 ft 7 in Weight:: 245 lb BMI: 38.3 Diagnosis Overweight/Obesity BMI> 30% ICD-10 E66: Yes Diagnosis High BMI/Morbid Obesity BMI> 35% ICD-10 Z68: Yes Outcomes/Goals: Pt sets, maintains & shows weight loss goal & trend during rehab Intervention/Plan: Instruct on ideal BMI & set weight loss goal w/patient, Assist pt to ID & incorporate diet changes for weight loss by S9, Refer to Structured Weight Loss program as appropriate, Encourage goal of using 250- 300dcal per session for weight loss 30 day Reassessments:: Progressing - Healthy Eating Habits Will attend diet classes:: Yes Outcomes/Goals:: Consume diet rich in vegs,fruits,whole grain/high fiber,fish,lean meat, Limit sat/trans fats,cholesterol & added salts & sugars Intervention/Plan:: Assess current eating habits 30-day Reassessments:: Progressing Medical- 60-Day Assessment - Visit Date of Eval: 06/22/20 Session #:: 29 - Medication Compliance Preventative Medication(s):: Aspirin, ANTOINETTE inhibitor, Statin/lipid, Beta yany, Eliquis H/O mental health issues: depression, anxiety, or addiction?: No Doesn?t believe in the benefits of treatment?: No Believes medications are unnecessary or harmful?: No Has a concern about medication side effects?: No Expresses concern over the cost of medications?: No Outcomes/Goals: Verbalizes medications,desired effect & common side effects @ DC, Pt self-reports following medication regimen, Keeps card in wallet w/med ications listed by DC Interventions/plans: Instruct on medication effects & side effects, Review medication list w/patient every two weeks, Instruct importance of taking meds as ordered & assist problem solving 30-day Reassessments:: Progressing - Tobacco Use Tobacco Use: Non-smoker - Quit 2.5 years ago. How many cigarettes do you smoke per day?: 30 Years Smokin Do you use smokeless tobacco?: No Outcomes/Goals: Smoking cessation achieved or maintained by discharge 30-day Reassessments:: Met - Hypertension Hypertension Diagnosis:: Hypertension ICD-10 I10 Resting Blood Pressure:: 142/76 - remains elevated with medication Citizen [place] [employer] Hypertension Guidelines: [place] [employer] Hypertension Guidelines. Normal BP Less than 120/80. Elevated BP 120/80. Hypertension Stage 1: BP 130-139/80-89. Hypertesnion Stage 2: BP 140 or higher/90 or higher. Hypertension Crisis: BP higher than 180/120 Peak Exercise Blood Pressure:: 158/76 Outcomes/Goals: Able to verbalize/achieve optimal blood pressure <130/80, Incorporates diet changes & exercise for blood pressure control by DC Interventions/plan: Instruct on optimal blood pressure, hypertension & medications, Instruct on effects of sodium, alcohol, stress, exercise &hypertension 30 day Reassessments:: Progressing - Tobacco Cessation Referral Smoking Cessation Referral:: No Individual Education/Counseling:: No Education Schedule Given:: Yes Psychosocial - 60-Day Assess - VIsit Date of Eval: 06/22/20 Session #:: 29 Not Applicable: Yes History of previous Mental disease:: No - Target Goals Target Goals: Assess presence or absence of depression. Using a valid screening tool, maximizes coping skills. Positive support system - Psychosocial Test Tool Used:: PHQ-9 Questionnaire phq-9 Severity: Severity. 1-4 Minimal Depression. 5-9 Mild Depression. 10-14 Moderate Depression. 15-19 Moderately Sever Depression. 20-27 Severe Depression. Rule: - Referral to Behavioral Health PS - Interventions: Yes Attend Stress Management Classes, No Referral to Behavioral Health if PHQ-9 score >9:, No Referral to [facility], No Referral to Physician if PHQ-9 if score is 5-9: - Outcomes/Goals: See list Psychosocial Outcomes/Goals:: ID's personal stressors & 2 strategies to manage stress by discharge - Intervention/Plan: See List Interventions/Plan:: Assess stressors,coping strategies & signs of derpression on admission, Instruct/assist pt to develop coping & personal stress Mgt strategies, Instruct patient to recognize signs & symptoms of depression, Instruct patient to recog - 30-day Reassessments: 30 day Reassessments:: Progressing Patient Health Questionnaire 90-Day Re-eval Assessment 1. Little interest or pleasure in doing things: Several days 2. Feeling down, depressed, or hopeless: Not at all 3. Trouble falling or staying asleep, or sleeping too much: Not at all 4. Feeling tired or having little energy: Several days 5. Poor appetite or overeating: Several days 6. Feeling bad about yourself -- or that you are a failure or have let yourself or your family down: Several days 7. Trouble concentrating on things, such as reading the newspaper or watching television: Not at all 8. Moving or speaking so slowly that other people could have noticed. Or the opposite - being so fidgety or restless that you have been moving around a lot more than usual: Not at all 9. Thoughts that you would be better off , or of hurting yourself in some way: Not at all Total Score: 4 Self-Efficacy 90-Day Re-eval Assessment We would like to know how confident you are in doing certain activities. Please select your confidence level for:: Select your confidence level for the following using the scale 1-10 where 1 is not at all confident and 10 is totally confident. Your score is the average of all 6 responses. Fatigue: How confident are you that you can keep the fatigue caused by your disease from interfering with the things you want to do? Select Number: 9 Physical Discomfort or Pain: How confident are you that you can keep the physical discomfort or pain of your disease from interfering with the things you want to do? Select Number: 10 Emotional Distress: How confident are you that you can keep the emotional distress caused by your disease from interfering with the things you want to do? Select Number: 10 Other Symptoms or Health Problems: How confident are you that you can keep other symptoms or health problems from interfering with the things you want to do? Select Number: 8 Different Tasks and Activities: How confident are you that you can do the different tasks and activities needed to manage your health condition so as to reduce your need to see a doctor? Select Number: 10 Medication: How confident are you that you can do things other than just taking medication to reduce how much your illness affects your everyday life? Select Number: 9 Total Score:: 9
[2020-06-22 07:05] VITALS: BP 142/76; BP 158/76; BMI 38.3
== END 2020-06-29 23:59 ==
LOC: CR 13:00
PROVIDERS: PCP Family Medicine; Referring Provider Internal Medicine Cardiovascular Disease; Visit Provider Internal Medicine Cardiovascular Disease
DX: Z95.1 Presence of aortocoronary bypass graft (principal)
CPT/HCPCS: 93798

== ENCOUNTER 2020-07-06 13:00 | Outpatient (RCR) | payer OTHER, SELFPAY ==
[2020-03-26 13:52] VITALS: BMI 38.2
[2020-06-22 07:05] VITALS: BMI 38.3
[2020-06-30 00:22] VITALS: BP 142/76; BP 158/76
== END 2020-07-30 23:59 ==
LOC: CR 13:00
PROVIDERS: PCP Family Medicine; Referring Provider Internal Medicine Cardiovascular Disease; Visit Provider Internal Medicine Cardiovascular Disease
DX: Z95.1 Presence of aortocoronary bypass graft (principal)
CPT/HCPCS: 93798

== ENCOUNTER 2020-07-26 08:00 | Outpatient (RCR) | payer SELFPAY ==
[2020-03-26 13:52] VITALS: BMI 38.2
[2020-06-22 07:05] VITALS: BMI 38.3
== END 2020-07-30 23:59 ==
LOC: CR 08:00
PROVIDERS: PCP Family Medicine; Visit Provider Family Medicine
DX: Z00.00 Encounter for general adult medical examination without abnormal findings (principal)

== ENCOUNTER 2020-08-28 08:00 | Outpatient (RCR) | payer SELFPAY ==
[2020-03-26 13:52] VITALS: BMI 38.2
[2020-06-22 07:05] VITALS: BMI 38.3
== END 2020-08-29 23:59 ==
LOC: CR 08:00
PROVIDERS: PCP Family Medicine; Referring Provider Family Medicine; Visit Provider Family Medicine
DX: Z00.00 Encounter for general adult medical examination without abnormal findings (principal)

== ENCOUNTER 2020-09-26 21:37 | Emergency (ER) | payer OTHER, SELFPAY ==
[2020-03-26 13:52] VITALS: BMI 38.2
[2020-06-22 07:05] VITALS: BMI 38.3
[2020-09-26 21:38] VITALS: BP 135/89; PULSE 63; RESP 18; TEMP 36.8; O2SAT 95; BMI 38.3
[2020-09-26 21:40] VITALS: BP 135/89; PULSE 63; RESP 21; O2SAT 95
--- NOTE | 2020-09-26 22:04 | EKG12_ITS ---
Test Reason : CP Blood Pressure : / mmHG Vent. Rate : 064 BPM Atrial Rate : 064 BPM P-R Int : 148 ms QRS Dur : 076 ms QT Int : 408 ms P-R-T Axes : 063 -05 047 degrees QTc Int : 420 ms Normal sinus rhythm Normal ECG Confirmed by TIMOTEO LEMUS, CONSUELO ([id number]), film editor ANA MAXWELL ([id number]) on 10/01/2020 9:07:14 AM Referred By: CELINA Confirmed By:FREDDY MAHMOOD MD
--- NOTE | 2020-09-26 22:10 | RAD_ITS ---
STUDY: X-RAY CHEST REASON FOR EXAM: Male, 65 years old. Chest pain. TECHNIQUE: Single AP portable view of the chest. COMPARISON: Comparison is made with prior study dated 01/22/2020. FINDINGS: EKG electrodes are seen. Increased linear markings at the right lung base suggestive of either atelectasis and/or early infiltrate. There is no demonstrated pleural abnormality. Sternal cerclage wires and vascular clips are present from a prior sternotomy and coronary artery bypass graft procedure (CABG). Normal mediastinum and gabriela. Normal visualized pulmonary arteries. Normal visualized aortic arch and descending thoracic aorta. There are diffuse degenerative changes of the visualized thoracic spine. Normal visualized ribs, clavicles, and shoulders. There is no demonstrated abnormality of the visualized soft tissue structures of the upper abdomen. RAD/Chest 1 View (Portable) IMPRESSION: Increased markings at the right lung base suggestive of linear atelectasis and/or early infiltrate. Electronically Signed: Ceferino Manriquez MD at 22:29 EDT , Service support ,
--- NOTE | 2020-09-26 22:13 | EDS_ITS ---
HPI History of Present Illness Chief Complaint: Chest Pain Informant: patient Narrative Narrative: Patient is a 65-year-old male who presents to the emergency department for left-sided chest pain. He states that he woke up with this. He thought he might of slept wrong on it but has been progressively getting worse throughout the day. He tried to golf today but was having more pain whenever he was trying to swing so he stopped after 4 holes. He denies any more shortness of breath than his baseline. No palpitations. Patient does have a history of coronary artery bypass graft this past November. He does have a history of atrial fibrillation on Eliquis. He also has a history of GI bleed with melena. He is denying this now. He denies any leg swelling or calf pain. He did have an illness last week with nausea/vomiting and diarrhea but this has since resolved. He denies any cough. Patient did take Tylenol for symptoms which did not give him significant relief. [facility] Medical History (Updated 09/27/20 @ 00:[address] Addison Craig ) CAD (coronary artery disease) Emphysema of lung External bleeding hemorrhoids Former heavy cigarette smoker (20-39 per day) History of cardioversion Hypertension Mixed hyperlipidemia Normal colonoscopy Paroxysmal atrial fibrillation Home Medications albuterol sulfate 2 puff INHALATION Q4H PRN PRN 01/22/20 [History Last Taken Unknown] folic acid 1 mg PO DAILY 01/22/20 [History Last Taken Unknown] furosemide 40 mg PO BIDLX 01/22/20 [History Last Taken Unknown] potassium chloride 10 meq PO DAILY 01/22/20 [History Last Taken Unknown] amiodarone 200 mg PO DAILY 03/26/20 [History Last Taken Unknown] carvedilol 50 mg PO BID 03/26/20 [History Last Taken Unknown] guaifenesin 600 mg PO Q12H PRN 03/26/20 [History Last Taken Unknown] apixaban [Eliquis] 5 mg PO DAILY 09/26/20 [History Last Taken Unknown] pantoprazole 40 mg PO BID 09/26/20 [History Last Taken Unknown] umeclidinium-vilanterol [Anoro Ellipta] 1 inh INHALATION DAILY 09/26/20 [History Last Taken Unknown] Allergy/AdvReac Type Severity Reaction Status Date / Time No Known Allergies Allergy Verified 09/26/20 21:38 Surgical History H/O arthroscopic knee surgery H/O hernia repair S/P CABG (coronary artery bypass graft) Status post PICC central line placement Social History Smoking Status: Former smoker ROS ROS ED Constitutional Constitutional ED: Denies chills or fever(s) Eyes Eyes: Denies change in vision ENT ENT ED: Denies epistaxis or rhinorrhea Cardiovascular Cardiovascular: Reports chest pain; Denies palpitations Respiratory/Chest Respiratory/Chest: Denies cough, dyspnea or dyspnea on exertion Gastrointestinal Gastrointestinal: Denies abdominal pain, diarrhea, nausea or vomiting Musculoskeletal Musculoskeletal: Denies back pain or neck pain Integumentary Denies rash Neurologic Neurologic: Denies dizziness, headache(s) or weakness EXAM Physical Exam Const Vital Signs: 09/26/20 21:38 09/26/20 21:40 09/26/20 22:09 Temperature 98.2 F Temperature Source Oral Pulse Rate 63 63 Respiratory Rate 18 21 H Respiratory Effort Normal Blood Pressure 135/89 H 135/89 H Blood Pressure Mean 104 104 Pulse Ox 95 95 Oxygen Delivery Method Room Air Room Air Room Air 09/27/20 00:27 09/27/20 00:43 Temperature Temperature Source Pulse Rate 56 L 53 L Respiratory Rate 21 H 23 H Respiratory Effort Blood Pressure 104/71 106/71 Blood Pressure Mean 82 Pulse Ox 92 Oxygen Delivery Method Positive well nourished and well developed General Appearance ED: well developed and NAD HEENT Reports normocephalic and head/scalp atraumatic Eyes PERRL and EOMs intact bilaterally Neck supple Chest Wall Chest Narrative: Tenderness to palpation of the left lateral ribs. Resp normal respiratory effort and clear to auscultation bilaterally Auscultation: Negative for rales, rhonchi or wheezes Cardio regular rate, regular rhythm and no murmurs GI normal to inspection, nondistended, normoactive bowel sounds and non-tender Palpation: soft; Negative for guarding or rebound tenderness present Back/Spine no CVA tenderness Extremity normal to inspection General Extremety ED: Negative for edema or tenderness General Extremity: Negative for edema Neuro no sensory deficits noted Sensorium / Orientation: alert Motor Exam: strength 5/5 throughout Psych mental status grossly normal Skin no rashes or lesions noted MDM MDM MDM Narrative Medical decision making narrative: Patient presents the ED for left chest wall pain. On arrival to the emergency department his vital signs are within normal limits. He is in no acute distress. On physical exam I can reproduce some of his pain with palpation. This makes me have lower concern for ACS. I have low concern for thromboembolism as he is anticoagulated without risk factors currently. EKG was obtained which did not show any signs of ischemia or arrhythmia. Will check basic lab work and chest x-ray. With a history of GI bleed he is not supposed to be on any anti-inflammatories. We will give a dose of [place] for symptomatic treatment. Patient's lab work does not reveal the patient to be significantly anemic. His troponin is well within normal limits. His creatinine is mildly elevated but similar to previous lab work-up. Patient's x-ray which was interpreted by myself as well as the radiologist showed a linear streak in the right lower quadrant. He is not having any pneumonia symptoms this could just be ate lectasis. I did review this with the patient. If he starts developing significant cough that is productive of sputum or fevers he will need treated. Patient's troponin well within normal limits. After treatment he is feeling much better. He was willing to stay for repeat troponin test. The second test actually decreased. This time I have very low concern for ACS, thromboembolism, aortic catastrophe or esophageal rupture. He does feel comfortable going home at this time. With the reproducibility of the pain I believe that this most likely chest wall pain. We will have him follow-up with his PCP. Return precautions are reviewed including any worsening symptoms, shortness of breath. He understands and is agreeable to plan. Will discharge home in stable condition. All questions were answered. Lab Data Labs: Laboratory Results - last 24 hr 09/26/20 09/26/20 09/26/20 21:53 21:53 23:57 WBC 7.3 RBC 4.25 L Hgb 13.1 Hct 41.5 MCV 97.6 H MCH 30.8 MCHC 31.6 L RDW Std Deviation 51.2 H RDW Coeff of Geri 14.3 Plt Count 147 L MPV 10.3 Immature Gran % (Auto) 0.400 Neut % (Auto) 68.7 Lymph % (Auto) 19.6 Baxter % (Auto) 7.5 Eos % (Auto) 3.3 Baso % (Auto) 0.5 Absolute Neuts (auto) 5.0 Absolute Lymphs (auto) 1.43 Nucleated RBC % 0 Sodium 141 Potassium 3.6 Chloride 108 H Carbon Dioxide 26.0 Anion Gap 7 BUN 27 H Creatinine 1.91 H Estim Creat Clear Calc 36.53 Est GFR (MDRD) Af Amer 46 L Est GFR (MDRD) Non-Af 38 L BUN/Creatinine Ratio 14.1 Glucose 134 H Calcium 8.6 Troponin I High Sens 6.9 6.2 Radiography Diagnostic Testing: Radiology Impression Chest X-Ray 09/26/20 22:10 IMPRESSION: Increased markings at the right lung base suggestive of linear atelectasis and/or early infiltrate. Electronically Signed: Ceferino Manriquez MD at 22:29 EDT , Service support , EKG Initial EKG: Attestation: I personally reviewed and interpreted this EKG as follows: (Rate of 64 bpm and normal sinus rhythm. Normal intervals. Normal axis. No significant ST elevations or depressions. No T wave abnormalities.) Discharge Plan Triage Chief Complaint: Chest Pain ED Provider: Addison Craig Dx/Rx/DC Orders Clinical Impression: Chest wall pain Instructions: ED Chest Pain, Noncardiac Prescriptions: No Action potassium chloride 10 MEQ capsule, extended release 10 meq PO DAILY RF: 0 furosemide 80 MG tablet 40 mg PO BIDLX RF: 0 folic acid 1 MG tablet 1 mg PO DAILY RF: 0 albuterol sulfate 1 INHALER inhaler 2 puff INHALATION Q4H PRN PRN (Reason: Sob &/Or Wheezing) RF: 0 carvedilol 25 MG tablet 50 mg PO BID RF: 0 amiodarone 200 MG tablet 200 mg PO DAILY RF: 0 guaifenesin 600 MG tablet extended release 12hr 600 mg PO Q12H PRN (Reason: Cough) RF: 0 pantoprazole 40 mg tablet,delayed release (DR/EC) 40 mg PO BID RF: 0 Anoro Ellipta 62.5-25 mcg/actuation blister with device 1 inh INHALATION DAILY RF: 0 Eliquis 5 mg tablet 5 mg PO DAILY RF: 0 Primary Care Provider: Jose Luis Avalos Referrals: Jose Luis Avalos MD [Primary Care Provider] - 2 Days Disposition Disposition: Home, Self Care Discharge Date/Time: 09/27/20 00:43
[2020-09-26 22:35] LABS: Absolute Lymphocyte Count 1.43 X10^3/uL (0.83-4.51); Basophil# 0.04 X10^3/uL; Basophil% 0.5 % (0-1); Eosinophil# 0.24 X10^3/uL; Eosinophils% 3.3 % (0-5); Hematocrit 41.5 % (40-54); Hemoglobin 13.1 g/dL (13.0-16.5); Lymphocyte # 1.43 X10^3/ul (0.83-4.51); Lymphocyte % 19.6 % (19-41); Mean Corp Hgb Conc 31.6 g/dL (32-36); Mean Corpuscular Hgb 30.8 pg (27.0-32.0); Mean Corpuscular Volume 97.6 fL (80-94); Mean Platelet Vol. 10.3 fl (6.2-12.0); Monocyte# 0.55 X10^3/uL; Monocyte% 7.5 % (0-10); NRBC Flagged by Analyzer 0 % (0-5); Neutrophil # 5.02 X10^3/uL (2.7-7.7); Neutrophil % 68.7 % (47-70); Platelet Count 147 K/mm3 (150-450); RBC Distribution Width CV 14.3 % (11.6-14.6); RBC Distribution Width SD 51.2 fl (35.1-43.9); Red Blood Count 4.25 M/mm3 (4.6-6.2); White Blood Count 7.3 K/mm3 (4.4-11.0)
[2020-09-26 22:48] LABS: Anion Gap 7 (5-15); BUN 27 mg/dL (7-18); BUN/Creat Ratio 14.1 RATIO (10-20); Calcium,Total 8.6 mg/dL (8.5-10.1); Chloride 108 mmol/L (98-107); Creatinine, Serum 1.91 mg/dL (0.70-1.30); EST Glomerular Filtration Rate 38 mL/min (>60); Est Glom Filt Rate - Afr Amer 46 mL/min (>60); Estimated Creatinine Clearance 36.53 ml/min; Glucose 134 mg/dL (74-106); Potassium 3.6 mmol/L (3.5-5.1); Sodium Level 141 mmol/L (136-145); Troponin-I HS 6.9 pg/mL (3.0-78.5)
[2020-09-26] MEDS: HYDROcodone Bitartrate/Apap 5/325 Tablet PO (23:07)
[2020-09-27 00:22] LABS: Troponin-I HS 6.2 pg/mL (3.0-78.5)
[2020-09-27 00:27] VITALS: BP 104/71; PULSE 56; RESP 21
[2020-09-27 00:43] VITALS: BP 106/71; PULSE 53; RESP 23; O2SAT 92
== END 2020-09-27 00:43 | disposition home or self-care (01) ==
PROVIDERS: Emergency Provider Emergency Medicine; PCP Family Medicine
DX: R07.89 Other chest pain (principal); I48.0 Paroxysmal atrial fibrillation; I25.10 Atherosclerotic heart disease of native coronary artery without angina pectoris; I10 Essential (primary) hypertension; E78.2 Mixed hyperlipidemia; Z95.1 Presence of aortocoronary bypass graft; Z79.02 Long term (current) use of antithrombotics/antiplatelets; Z79.899 Other long term (current) drug therapy; Z87.891 Personal history of nicotine dependence
CPT/HCPCS: 71045; 80048; 84484; 85025; 93005; 99284; A4216

== ENCOUNTER 2020-09-27 08:00 | Outpatient (RCR) | payer SELFPAY ==
[2020-03-26 13:52] VITALS: BMI 38.2
[2020-06-22 07:05] VITALS: BMI 38.3
== END 2020-09-29 23:59 ==
LOC: CR 08:00
PROVIDERS: PCP Family Medicine; Referring Provider Family Medicine; Visit Provider Family Medicine
DX: Z00.00 Encounter for general adult medical examination without abnormal findings (principal)

== ENCOUNTER 2020-10-30 08:00 | Outpatient (RCR) | payer SELFPAY ==
[2020-06-22 07:05] VITALS: BMI 38.3
== END 2020-10-30 23:59 ==
LOC: CR 08:00
PROVIDERS: PCP Family Medicine; Referring Provider Family Medicine; Visit Provider Family Medicine
DX: Z00.00 Encounter for general adult medical examination without abnormal findings (principal)

== ENCOUNTER 2020-11-29 08:00 | Outpatient (RCR) | payer SELFPAY ==
[2020-06-22 07:05] VITALS: BMI 38.3
[2020-10-31 00:34] VITALS: BMI 38.3
== END 2020-11-29 23:59 ==
LOC: CR 08:00
PROVIDERS: PCP Family Medicine; Referring Provider Family Medicine; Visit Provider Family Medicine
DX: Z00.00 Encounter for general adult medical examination without abnormal findings (principal)

== ENCOUNTER 2020-12-27 08:00 | Outpatient (RCR) | payer SELFPAY ==
[2020-06-22 07:05] VITALS: BMI 38.3
[2020-11-30 00:27] VITALS: BMI 38.3
== END 2020-12-30 23:59 ==
LOC: CR 08:00
PROVIDERS: PCP Family Medicine; Referring Provider Family Medicine; Visit Provider Family Medicine
DX: Z00.00 Encounter for general adult medical examination without abnormal findings (principal)

== ENCOUNTER 2021-01-29 08:00 | Outpatient (RCR) | payer SELFPAY ==
[2020-06-22 07:05] VITALS: BMI 38.3
[2020-12-31 00:23] VITALS: BMI 38.3
== END 2021-01-29 23:59 ==
LOC: CR 08:00
PROVIDERS: PCP Family Medicine; Referring Provider Family Medicine; Visit Provider Family Medicine
DX: Z00.00 Encounter for general adult medical examination without abnormal findings (principal)

== ENCOUNTER 2021-02-21 11:23 | Outpatient (CLI) | payer OTHER, SELFPAY ==
[2020-06-22 07:05] VITALS: BMI 38.3
[2021-02-21 11:35] VITALS: BP 128/86; PULSE 73; RESP 16; TEMP 37; O2SAT 96; BMI 89.4
[2021-02-21] MEDS: 0.9% Saline Lock 10 ML Syringe IV (11:46)
[2021-02-21 12:30] VITALS: BP 121/92; PULSE 70; RESP 16; TEMP 36.9; O2SAT 95
[2021-02-21 13:16] VITALS: BP 140/98; PULSE 69; RESP 16; TEMP 37.3; O2SAT 98
[2021-02-21 13:20] VITALS: BP 140/98; PULSE 69; RESP 16; TEMP 37.3; O2SAT 98
== END 2021-02-21 13:31 | disposition home or self-care (01) ==
LOC: MS3OUT 11:23 → MS3 11:24
PROVIDERS: PCP Family Medicine; Referring Provider Nurse Practitioner Adult Health; Visit Provider Nurse Practitioner Adult Health
DX: Z23 Encounter for immunization (principal); U07.1 COVID-19
CPT/HCPCS: J7050; M0245; Q0245; A4216

== ENCOUNTER 2021-02-28 08:00 | Outpatient (RCR) | payer SELFPAY ==
[2020-06-22 07:05] VITALS: BMI 38.3
[2021-01-30 00:28] VITALS: BMI 38.3
== END 2021-03-01 23:59 ==
LOC: CR 08:00
PROVIDERS: PCP Family Medicine; Referring Provider Family Medicine; Visit Provider Family Medicine
DX: Z00.00 Encounter for general adult medical examination without abnormal findings (principal)

== ENCOUNTER 2021-03-28 08:00 | Outpatient (RCR) | payer SELFPAY ==
[2020-06-22 07:05] VITALS: BMI 38.3
== END 2021-04-01 23:59 ==
LOC: CR 08:00
PROVIDERS: PCP Family Medicine; Referring Provider Family Medicine; Visit Provider Family Medicine
DX: Z00.00 Encounter for general adult medical examination without abnormal findings (principal)

== ENCOUNTER 2021-04-23 08:00 | Outpatient (RCR) | payer SELFPAY ==
[2020-06-22 07:05] VITALS: BMI 38.3
== END 2021-04-29 23:59 ==
LOC: CR 08:00
PROVIDERS: PCP Family Medicine; Referring Provider Family Medicine; Visit Provider Family Medicine
DX: Z00.00 Encounter for general adult medical examination without abnormal findings (principal)

== ENCOUNTER 2021-05-30 08:00 | Outpatient (RCR) | payer SELFPAY ==
[2020-06-22 07:05] VITALS: BMI 38.3
== END 2021-05-30 23:59 | disposition home or self-care (01) ==
LOC: CR 08:00
PROVIDERS: PCP Family Medicine; Referring Provider Family Medicine; Visit Provider Family Medicine
DX: Z00.00 Encounter for general adult medical examination without abnormal findings (principal)

== ENCOUNTER 2021-06-27 08:00 | Outpatient (RCR) | payer SELFPAY ==
[2020-06-22 07:05] VITALS: BMI 38.3
== END 2021-06-29 23:59 ==
LOC: CR 08:00
PROVIDERS: PCP Family Medicine; Referring Provider Family Medicine; Visit Provider Family Medicine
DX: Z00.00 Encounter for general adult medical examination without abnormal findings (principal)

== ENCOUNTER 2021-07-30 08:00 | Outpatient (RCR) | payer SELFPAY ==
[2020-06-22 07:05] VITALS: BMI 38.3
== END 2021-07-30 23:59 ==
LOC: CR 08:00
PROVIDERS: PCP Family Medicine; Referring Provider Family Medicine; Visit Provider Family Medicine
DX: Z00.00 Encounter for general adult medical examination without abnormal findings (principal)

== ENCOUNTER 2021-08-29 08:00 | Outpatient (RCR) | payer SELFPAY ==
[2020-06-22 07:05] VITALS: BMI 38.3
== END 2021-08-29 23:59 ==
LOC: CR 08:00
PROVIDERS: PCP Family Medicine; Referring Provider Family Medicine; Visit Provider Family Medicine
DX: Z00.00 Encounter for general adult medical examination without abnormal findings (principal)

== ENCOUNTER 2021-09-26 08:00 | Outpatient (RCR) | payer SELFPAY ==
[2020-06-22 07:05] VITALS: BMI 38.3
== END 2021-09-29 23:59 ==
LOC: CR 08:00
PROVIDERS: PCP Family Medicine; Referring Provider Family Medicine; Visit Provider Family Medicine
DX: Z00.00 Encounter for general adult medical examination without abnormal findings (principal)

== ENCOUNTER 2021-10-13 13:23 | Emergency (ER) | payer OTHER, SELFPAY ==
[2020-06-22 07:05] VITALS: BMI 38.3
[2021-10-13 13:24] VITALS: BP 168/88; PULSE 66; RESP 22; TEMP 36.2; O2SAT 97; BMI 43.2
[2021-10-13 14:33] VITALS: O2SAT 97
--- NOTE | 2021-10-13 14:42 | EKG12_ITS ---
Test Reason : Blood Pressure : / mmHG Vent. Rate : 064 BPM Atrial Rate : 064 BPM P-R Int : 140 ms QRS Dur : 074 ms QT Int : 420 ms P-R-T Axes : 058 -12 066 degrees QTc Int : 433 ms Sinus rhythm with frequent Premature ventricular complexes in a pattern of bigeminy Nonspecific T wave abnormality Abnormal ECG Confirmed by KAREL LEMUS, PETRA ([id number]), editor city ANA MAXWELL ([id number]) on 10/14/2021 1:52:15 PM Referred By: Confirmed By:PETRA VINSON MD
--- NOTE | 2021-10-13 14:42 | ED.VIS.DYS ---
HPI History of Present Illness Chief Complaint: Shortness of Breath Narrative Narrative: XT 6-year-old male presenting with generalized fatigue and some shortness of breath. This started earlier today. Patient initially got up out of bed and went to work and felt fine. He noticed that he felt a little bit short of breath at work. He states he had a portable pulse ox with him and states his pulse ox was 88. He states his heart rate went down to 38. He states that after sitting for a while it came back up into the high 50s low 60s. He denies any chest pain. He is not had fever, chills, body aches. No nausea or vomiting. He states he is on Eliquis and has no black or bloody stools. He does have a history of GI bleed distantly. Patient does report that his blood pressures have been sporadically low and high. He had some systolic blood pressures in the 80s at home and then states his blood pressures been in the 160s to 170s this afternoon. He states he is taking his blood pressure medicines as prescribed. He is also taking Lasix. [facility] Medical History CAD (coronary artery disease) Emphysema of lung External bleeding hemorrhoids Former heavy cigarette smoker (20-39 per day) History of cardioversion Hypertension Mixed hyperlipidemia Normal colonoscopy Paroxysmal atrial fibrillation Home Medications albuterol sulfate 90 mcg/actuation aerosol inhaler 2 puff inhalation Q4H PRN PRN Sob &/Or Wheezing 01/22/20 [History Last Taken Unknown] folic acid 1 mg tablet 1 mg PO DAILY 01/22/20 [History Last Taken Unknown] furosemide 80 mg tablet 40 mg PO BIDLX 01/22/20 [History Last Taken Unknown] carvedilol 25 mg tablet 50 mg PO BID 03/26/20 [History Last Taken Unknown] guaifenesin 600 mg tablet, extended release 12 hr 600 mg PO Q12H PRN Cough 03/26/20 [History Last Taken Unknown] apixaban 5 mg tablet (Eliquis) 5 mg PO BID 09/26/20 [History Last Taken Unknown] pantoprazole 40 mg tablet,delayed release 40 mg PO BID 09/26/20 [History Last Taken Unknown] umeclidinium 62.5 mcg-vilanterol 25 mcg/actuation powdr for inhalation (Anoro Ellipta) 1 inh inhalation DAILY 09/26/20 [History Last Taken Unknown] ascorbic acid (vitamin C) 500 mg tablet (Vitamin C) 500 mg PO BID 02/21/21 [History Last Taken Unknown] azithromycin 250 mg tablet 250 mg PO DAILY #4 tabs 10/13/21 [Rx Last Taken Unknown] Allergy/AdvReac Type Severity Reaction Status Date / Time No Known Allergies Allergy Verified 10/13/21 13:24 Surgical History H/O arthroscopic knee surgery H/O hernia repair S/P CABG (coronary artery bypass graft) Status post PICC central line placement Social History Smoking Status: Former smoker ROS ROS ED Constitutional Constitutional ED: Reports other Details: Generalized weakness ; Denies chills or fever(s) Eyes Eyes: Denies change in vision or diplopia ENT ENT ED: Denies rhinorrhea or sore throat Cardiovascular Cardiovascular: Reports other; Denies chest pain or palpitations Respiratory/Chest Respiratory/Chest: Reports dyspnea; Denies cough Gastrointestinal Gastrointestinal: Denies abdominal pain or constipation Genitourinary Genitourinary ED: Denies dysuria or hematuria Musculoskeletal Musculoskeletal: Denies arthralgias or back pain Integumentary Denies abscess or Abrasions Neurologic Neurologic: Denies headache(s), paresthesias or weakness Psychiatric Psychiatric: Denies anxiety or depression EXAM Physical Exam Const Vital Signs: 10/13/21 13:24 10/13/21 14:33 10/13/21 14:55 Temperature 97.2 F L Temperature Source Temporal Pulse Rate 66 Pulse Rate [Lying] Pulse Rate [Sitting (for 1 minute prior to obtaining)] Pulse Rate [Standing (for 1 minute prior to obtaining)] Respiratory Rate 22 H Respiratory Effort Short of Breath Respiratory Depth Normal Respiratory Pattern Normal Blood Pressure 168/88 H Blood Pressure [Lying] Blood Pressure [Sitting (for 1 minute prior to obtaining)] Blood Pressure [Standing (for 1 minute prior to obtaining)] Blood Pressure Mean 114 Blood Pressure Mean [Lying] Blood Pressure Mean [Sitting (for 1 minute prior to obtaining)] Blood Pressure Mean [Standing (for 1 minute prior to obtaining)] Pulse Ox 97 Oxygen Delivery Method Room Air Room Air Room Air 10/13/21 15:34 10/13/21 16:22 Temperature Temperature Source Pulse Rate 55 L Pulse Rate [Lying] 51 L Pulse Rate [Sitting (for 1 minute prior to obtaining)] 51 L Pulse Rate [Standing (for 1 minute prior to obtaining)] 67 Respiratory Rate 18 Respiratory Effort Respiratory Depth Respiratory Pattern Blood Pressure 138/95 H Blood Pressure [Lying] 124/80 H Blood Pressure [Sitting (for 1 minute prior to obtaining)] 149/83 H Blood Pressure [Standing (for 1 minute prior to obtaining)] 151/95 H Blood Pressure Mean 109 Blood Pressure Mean [Lying] 94 Blood Pressure Mean [Sitting (for 1 minute prior to obtaining)] 105 Blood Pressure Mean [Standing (for 1 minute prior to obtaining)] 113 Pulse Ox 97 Oxygen Delivery Method Room Air Positive well nourished General Appearance ED: NAD; Negative for pallor HEENT Reports moist mucous membranes atraumatic Eyes PERRL and EOMs intact bilaterally General Eye ED: Negative for pale conjunctiva or scleral icterus Resp normal respiratory effort and clear to auscultation bilaterally Cardio regular rate and regular rhythm GI non-tender and non-distended Extremity normal to inspection General Extremety ED: Negative for edema or tenderness General Extremity: Negative for edema Neuro oriented x3 and CN's II-XII intact bilaterally Sensorium / Orientation: alert Psych mental status grossly normal Skin no wounds and skin turgor normal General Skin Exam: Negative for jaundice or pallor MDM MDM MDM Narrative Medical decision making narrative: Patient presenting with shortness of breath and concern for bradycardia. I obtained an EKG which on my interpretation shows a sinus rhythm with a ventricular rate of 64 bpm with PVCs. There is no ST elevation or depression. Chest x-ray on my interpretation shows abnormalities in the left and right lung which could be consistent with pneumonia. Patient's COVID test was negative. He ambulated on pulse ox with room air and he maintained sats 94%. Orthostatic vital signs are normal. Blood pressure has normalized. CBC shows leukocytosis. He has slight lymphopenic. Renal function electrolytes at baseline. High-sensitivity troponin is 8. Discussed this with Dr. Javier. He recommended putting patient on azithromycin. I will send a COVID PCR as this is still likely the cause. Patient counseled on all findings and discussed follow-up with primary care. Return precautions were discussed. Impression: 1. Concern for bradycardia 2. PVCs 3. Generalized weakness 4. Dyspnea 5. Pneumonia Lab Data Attestation: I reviewed the patient's lab results. Labs: Laboratory Results - last 24 hr 10/13/21 10/13/21 14:55 14:55 WBC 7.3 RBC 4.03 L Hgb 13.1 Hct 41.0 MCV 101.7 H MCH 32.5 H MCHC 32.0 RDW Std Deviation 50.6 H RDW Coeff of Geri 13.3 Plt Count 160 MPV 10.3 Immature Gran % (Auto) 0.300 Neut % (Auto) 77.2 H Lymph % (Auto) 10.9 L Esmeralda % (Auto) 9.1 Eos % (Auto) 2.0 Baso % (Auto) 0.5 Absolute Neuts (auto) 5.7 Absolute Lymphs (auto) 0.80 L Nucleated RBC % 0 Sodium 142 Potassium 3.9 Chloride 110 H Carbon Dioxide 28.0 Anion Gap 4 L BUN 19 H Creatinine 1.31 H Estim Creat Clear Calc 52.56 Est GFR (MDRD) Af Amer 71 Est GFR (MDRD) Non-Af 58 L BUN/Creatinine Ratio 14.5 Glucose 105 Calcium 8.2 L Troponin I High Sens 8 Radiography Diagnostic Testing: Clinical Impression(s) from Imaging Studies Chest X-Ray 10/13/21 15:41 IMPRESSION: Mild opacities in the left mid and right lower lung from atelectasis or pneumonia. Electronically Signed: Alana Arreola MD at 15:54 EDT Reading Location ID and State: [facility] / [place] Tel , Service support , Discharge Plan Triage Chief Complaint: Shortness of Breath ED Provider: Destin Cobos Dx/Rx/DC Orders Instructions: ED Pneumonia (Adult) Prescriptions: New azithromycin 250 mg tablet 250 mg PO DAILY Qty: 4 0RF No Action furosemide 80 MG tablet 40 mg PO BIDLX Rx Instructions: HOLD IF BP <90 folic acid 1 MG tablet 1 mg PO DAILY albuterol sulfate 1 INHALER inhaler 2 puff INHALATION Q4H PRN PRN (Reason: Sob &/Or Wheezing) carvedilol 25 MG tablet 50 mg PO BID guaifenesin 600 MG tablet extended release 12hr 600 mg PO Q12H PRN (Reason: Cough) pantoprazole 40 mg tablet,delayed release (DR/EC) 40 mg PO BID Label Comments: take 1 tablet by mouth twice a day Anoro Ellipta 62.5-25 mcg/actuation blister with device 1 inh INHALATION DAILY Label Comments: inhale 1 puff by mouth once daily Eliquis 5 mg tablet 5 mg PO BID Label Comments: take 1 tablet by mouth twice a day ascorbic acid (vitamin C) [Vitamin C] 500 mg Tablet 500 mg PO BID Primary Care Provider: oJse Luis Avalos Referrals: Jose Luis Avalos MD [Primary Care Provider] - Disposition Disposition: Home, Self Care
[2021-10-13 15:04] LABS: Absolute Neutrophil Count 5.7 X10^3/uL (2.0-7.7); Basophil# 0.04 X10^3/uL; Basophil% 0.5 % (0-1); Eosinophil# 0.15 X10^3/uL; Hemoglobin 13.1 g/dL (13.0-16.5); Lymphocyte % 10.9 % (19-41); Mean Corpuscular Hgb 32.5 pg (27.0-32.0); Mean Corpuscular Volume 101.7 fL (80-94); Mean Platelet Vol. 10.3 fl (6.2-12.0); Monocyte# 0.67 X10^3/uL; Monocyte% 9.1 % (0-10); NRBC Flagged by Analyzer 0 % (0-5); Neutrophil # 5.65 X10^3/uL (2.7-7.7); Neutrophil % 77.2 % (47-70); Platelet Count 160 K/mm3 (150-450); RBC Distribution Width CV 13.3 % (11.6-14.6); RBC Distribution Width SD 50.6 fl (35.1-43.9); Red Blood Count 4.03 M/mm3 (4.6-6.2); White Blood Count 7.3 K/mm3 (4.4-11.0)
[2021-10-13 15:24] LABS: Anion Gap 4 (5-15); BUN 19 mg/dL (7-18); BUN/Creat Ratio 14.5 RATIO (10-20); Calcium,Total 8.2 mg/dL (8.5-10.1); Chloride 110 mmol/L (98-107); Creatinine, Serum 1.31 mg/dL (0.70-1.30); EST Glomerular Filtration Rate 58 mL/min (>60); Est Glom Filt Rate - Afr Amer 71 mL/min (>60); Estimated Creatinine Clearance 52.56 ml/min; Glucose 105 mg/dL (74-106); Potassium 3.9 mmol/L (3.5-5.1); Sodium Level 142 mmol/L (136-145); Troponin-I HS (w/2H Reflex) 8 pg/mL (3.0-78.0)
[2021-10-13 15:34] VITALS: BP 124/80; BP 149/83; BP 151/95; PULSE 51; PULSE 67
--- NOTE | 2021-10-13 15:41 | RAD_ITS ---
HISTORY: chest pain. TECHNIQUE: XR Chest 1 View. COMPARISON: 09/26/2020. FINDINGS: CARDIOMEDIASTINAL BORDERS: Cardiac silhouette within normal limits in size. Mediastinal contour unremarkable. Midline sternotomy. LUNGS: Linear and patchy opacities in the left mid and right lower lung. PLEURA: No pleural effusion or pneumothorax seen. OSSEOUS STRUCTURES: Degenerative change. RAD/Chest 1 View (Portable) IMPRESSION: Mild opacities in the left mid and right lower lung from atelectasis or pneumonia. Electronically Signed: Alana Arreola MD at 15:54 EDT ,
[2021-10-13 15:52] VITALS: O2SAT 96
[2021-10-13 16:22] VITALS: BP 138/95; PULSE 55; RESP 18; O2SAT 97
[2021-10-13] MEDS: Azithromycin 250 MG Tablet 500 MG PO (16:27)
[2021-10-13 17:01] LABS: Reflex Troponin-HS? (from REC) Y
[2021-10-13 19:08] LABS: Probe Check PASS; Specimen Processing Control PASS
== END 2021-10-13 16:55 | disposition home or self-care (01) ==
PROVIDERS: Emergency Provider Student in an Organized Health Care Education/Training Program; PCP Family Medicine; Visit Provider Student in an Organized Health Care Education/Training Program
DX: J18.9 Pneumonia, unspecified organism (principal); J43.9 Emphysema, unspecified; Z87.891 Personal history of nicotine dependence; I10 Essential (primary) hypertension; I25.10 Atherosclerotic heart disease of native coronary artery without angina pectoris; R53.1 Weakness; E78.2 Mixed hyperlipidemia; I49.3 Ventricular premature depolarization; Z79.01 Long term (current) use of anticoagulants; Z79.899 Other long term (current) drug therapy; Z20.822 Contact with and (suspected) exposure to COVID-19
CPT/HCPCS: 71045; 80048; 84484; 85025; 87635; 87811; 93005; 99283; A4216; U0003; U0005

== ENCOUNTER 2021-10-29 08:00 | Outpatient (RCR) | payer SELFPAY ==
[2020-06-22 07:05] VITALS: BMI 38.3
== END 2021-10-30 23:59 ==
LOC: CR 08:00
PROVIDERS: PCP Family Medicine; Referring Provider Family Medicine; Visit Provider Family Medicine
DX: Z00.00 Encounter for general adult medical examination without abnormal findings (principal)

== ENCOUNTER 2021-11-28 08:00 | Outpatient (RCR) | payer SELFPAY ==
[2020-06-22 07:05] VITALS: BMI 38.3
== END 2021-11-29 23:59 ==
LOC: CR 08:00
PROVIDERS: PCP Family Medicine; Referring Provider Family Medicine; Visit Provider Family Medicine
DX: Z00.00 Encounter for general adult medical examination without abnormal findings (principal)

== ENCOUNTER 2021-12-26 08:00 | Outpatient (RCR) | payer SELFPAY ==
[2020-06-22 07:05] VITALS: BMI 38.3
== END 2021-12-30 23:59 ==
LOC: CR 08:00
PROVIDERS: PCP Family Medicine; Referring Provider Family Medicine; Visit Provider Family Medicine
DX: Z00.00 Encounter for general adult medical examination without abnormal findings (principal)

== ENCOUNTER 2022-01-28 08:00 | Outpatient (RCR) | payer SELFPAY ==
[2020-06-22 07:05] VITALS: BMI 38.3
== END 2022-01-29 23:59 ==
LOC: CR 08:00
PROVIDERS: PCP Family Medicine; Referring Provider Family Medicine; Visit Provider Family Medicine
DX: Z00.00 Encounter for general adult medical examination without abnormal findings (principal)

== ENCOUNTER 2022-02-27 08:00 | Outpatient (RCR) | payer SELFPAY ==
[2020-06-22 07:05] VITALS: BMI 38.3
== END 2022-03-01 23:59 ==
LOC: CR 08:00
PROVIDERS: PCP Family Medicine; Referring Provider Family Medicine; Visit Provider Family Medicine
DX: Z00.00 Encounter for general adult medical examination without abnormal findings (principal)

== ENCOUNTER 2022-04-01 08:00 | Outpatient (RCR) | payer SELFPAY ==
[2020-06-22 07:05] VITALS: BMI 38.3
== END 2022-04-01 23:59 ==
LOC: PR 08:00
PROVIDERS: PCP Family Medicine; Visit Provider Family Medicine
DX: Z00.00 Encounter for general adult medical examination without abnormal findings (principal)

== ENCOUNTER 2022-04-29 08:00 | Outpatient (RCR) | payer SELFPAY ==
[2020-06-22 07:05] VITALS: BMI 38.3
== END 2022-04-29 23:59 ==
LOC: PR 08:00
PROVIDERS: PCP Family Medicine; Visit Provider Family Medicine
DX: Z00.00 Encounter for general adult medical examination without abnormal findings (principal)

== ENCOUNTER 2022-05-29 08:00 | Outpatient (RCR) | payer SELFPAY ==
[2020-06-22 07:05] VITALS: BMI 38.3
== END 2022-05-30 23:59 ==
LOC: PR 08:00
PROVIDERS: PCP Family Medicine; Visit Provider Family Medicine
DX: Z00.00 Encounter for general adult medical examination without abnormal findings (principal)

== ENCOUNTER 2022-06-26 08:00 | Outpatient (RCR) | payer SELFPAY ==
[2020-06-22 07:05] VITALS: BMI 38.3
== END 2022-06-29 23:59 ==
LOC: PR 08:00
PROVIDERS: PCP Family Medicine; Visit Provider Family Medicine
DX: Z00.00 Encounter for general adult medical examination without abnormal findings (principal)

== ENCOUNTER 2022-07-29 08:00 | Outpatient (RCR) | payer SELFPAY ==
[2020-06-22 07:05] VITALS: BMI 38.3
== END 2022-07-30 23:59 ==
LOC: PR 08:00
PROVIDERS: PCP Family Medicine; Referring Provider Family Medicine; Visit Provider Family Medicine
DX: Z00.00 Encounter for general adult medical examination without abnormal findings (principal)

== ENCOUNTER 2022-08-28 08:00 | Outpatient (RCR) | payer SELFPAY ==
[2020-06-22 07:05] VITALS: BMI 38.3
== END 2022-08-29 23:59 ==
LOC: PR 08:00
PROVIDERS: PCP Family Medicine; Referring Provider Family Medicine; Visit Provider Family Medicine
DX: Z00.00 Encounter for general adult medical examination without abnormal findings (principal)

== ENCOUNTER 2022-09-25 08:00 | Outpatient (RCR) | payer SELFPAY ==
[2020-06-22 07:05] VITALS: BMI 38.3
== END 2022-09-29 23:59 ==
LOC: PR 08:00
PROVIDERS: PCP Family Medicine; Referring Provider Family Medicine; Visit Provider Family Medicine
DX: Z00.00 Encounter for general adult medical examination without abnormal findings (principal)

== ENCOUNTER 2022-10-30 08:00 | Outpatient (RCR) | payer SELFPAY ==
[2020-06-22 07:05] VITALS: BMI 38.3
== END 2022-10-30 23:59 ==
LOC: PR 08:00
PROVIDERS: PCP Family Medicine; Referring Provider Family Medicine; Visit Provider Family Medicine
DX: Z00.00 Encounter for general adult medical examination without abnormal findings (principal)

== ENCOUNTER 2022-11-27 08:00 | Outpatient (RCR) | payer SELFPAY ==
[2020-06-22 07:05] VITALS: BMI 38.3
== END 2022-11-29 23:59 ==
LOC: PR 08:00
PROVIDERS: PCP Family Medicine; Referring Provider Family Medicine; Visit Provider Family Medicine
DX: Z00.00 Encounter for general adult medical examination without abnormal findings (principal)

== ENCOUNTER 2022-12-30 08:00 | Outpatient (RCR) | payer SELFPAY ==
[2020-06-22 07:05] VITALS: BMI 38.3
== END 2022-12-30 23:59 ==
LOC: PR 08:00
PROVIDERS: PCP Family Medicine; Referring Provider Family Medicine; Visit Provider Family Medicine
DX: Z00.00 Encounter for general adult medical examination without abnormal findings (principal)

== ENCOUNTER 2023-01-29 08:00 | Outpatient (RCR) | payer SELFPAY ==
[2020-06-22 07:05] VITALS: BMI 38.3
== END 2023-01-29 23:59 ==
LOC: PR 08:00
PROVIDERS: PCP Family Medicine; Referring Provider Family Medicine; Visit Provider Family Medicine
DX: Z00.00 Encounter for general adult medical examination without abnormal findings (principal)

== ENCOUNTER 2023-02-26 08:00 | Outpatient (RCR) | payer SELFPAY ==
[2020-06-22 07:05] VITALS: BMI 38.3
== END 2023-03-01 23:59 ==
LOC: PR 08:00
PROVIDERS: PCP Family Medicine; Referring Provider Family Medicine; Visit Provider Family Medicine
DX: Z00.00 Encounter for general adult medical examination without abnormal findings (principal)

== ENCOUNTER 2023-03-31 08:00 | Outpatient (RCR) | payer SELFPAY ==
[2020-06-22 07:05] VITALS: BMI 38.3
== END 2023-04-01 23:59 ==
LOC: PR 08:00
PROVIDERS: PCP Family Medicine; Referring Provider Family Medicine; Visit Provider Family Medicine
DX: Z00.00 Encounter for general adult medical examination without abnormal findings (principal)

== ENCOUNTER 2023-04-30 08:00 | Outpatient (RCR) | payer SELFPAY ==
[2020-06-22 07:05] VITALS: BMI 38.3
== END 2023-04-30 23:59 ==
LOC: PR 08:00
PROVIDERS: PCP Family Medicine; Referring Provider Family Medicine; Visit Provider Family Medicine
DX: Z00.00 Encounter for general adult medical examination without abnormal findings (principal)

== ENCOUNTER 2023-05-28 08:00 | Outpatient (RCR) | payer SELFPAY ==
[2020-06-22 07:05] VITALS: BMI 38.3
== END 2023-05-31 23:59 ==
LOC: PR 08:00
PROVIDERS: PCP Family Medicine; Referring Provider Family Medicine; Visit Provider Family Medicine
DX: Z00.00 Encounter for general adult medical examination without abnormal findings (principal)

== ENCOUNTER 2023-06-30 08:00 | Outpatient (RCR) | payer SELFPAY ==
[2020-06-22 07:05] VITALS: BMI 38.3
== END 2023-06-30 23:59 ==
LOC: PR 08:00
PROVIDERS: PCP Family Medicine; Referring Provider Family Medicine; Visit Provider Family Medicine
DX: Z00.00 Encounter for general adult medical examination without abnormal findings (principal)

== ENCOUNTER 2023-07-30 08:00 | Outpatient (RCR) | payer SELFPAY ==
[2020-06-22 07:05] VITALS: BMI 38.3
== END 2023-07-31 23:59 ==
LOC: PR 08:00
PROVIDERS: PCP Family Medicine; Referring Provider Family Medicine; Visit Provider Family Medicine
DX: Z00.00 Encounter for general adult medical examination without abnormal findings (principal)

== ENCOUNTER 2023-08-27 08:00 | Outpatient (RCR) | payer SELFPAY ==
[2020-06-22 07:05] VITALS: BMI 38.3
== END 2023-08-30 23:59 ==
LOC: PR 08:00
PROVIDERS: PCP Family Medicine; Referring Provider Family Medicine; Visit Provider Family Medicine
DX: Z00.00 Encounter for general adult medical examination without abnormal findings (principal)

== ENCOUNTER 2023-09-29 08:00 | Outpatient (RCR) | payer SELFPAY ==
[2020-06-22 07:05] VITALS: BMI 38.3
== END 2023-09-30 23:59 ==
LOC: PR 08:00
PROVIDERS: PCP Family Medicine; Referring Provider Family Medicine; Visit Provider Family Medicine
DX: Z00.00 Encounter for general adult medical examination without abnormal findings (principal)

== ENCOUNTER 2023-10-29 08:00 | Outpatient (RCR) | payer SELFPAY ==
[2020-06-22 07:05] VITALS: BMI 38.3
== END 2023-10-31 23:59 ==
LOC: PR 08:00
PROVIDERS: PCP Family Medicine; Referring Provider Family Medicine; Visit Provider Family Medicine
DX: Z00.00 Encounter for general adult medical examination without abnormal findings (principal)

== ENCOUNTER 2023-11-26 08:00 | Outpatient (RCR) | payer SELFPAY ==
[2020-06-22 07:05] VITALS: BMI 38.3
== END 2023-11-30 23:59 ==
LOC: PR 08:00
PROVIDERS: PCP Family Medicine; Referring Provider Family Medicine; Visit Provider Family Medicine
DX: J44.9 Chronic obstructive pulmonary disease, unspecified (principal)

== ENCOUNTER 2023-12-31 08:00 | Outpatient (RCR) | payer SELFPAY ==
[2020-06-22 07:05] VITALS: BMI 38.3
== END 2023-12-31 23:59 ==
LOC: PR 08:00
PROVIDERS: PCP Family Medicine; Referring Provider Family Medicine; Visit Provider Family Medicine
DX: Z00.00 Encounter for general adult medical examination without abnormal findings (principal)

== ENCOUNTER 2024-01-26 08:00 | Outpatient (RCR) | payer SELFPAY ==
[2020-06-22 07:05] VITALS: BMI 38.3
== END 2024-01-30 23:59 ==
LOC: PR 08:00
PROVIDERS: PCP Family Medicine; Referring Provider Family Medicine; Visit Provider Family Medicine
DX: Z00.00 Encounter for general adult medical examination without abnormal findings (principal)

== ENCOUNTER 2024-03-01 08:00 | Outpatient (RCR) | payer SELFPAY ==
[2020-06-22 07:05] VITALS: BMI 38.3
== END 2024-03-01 23:59 ==
LOC: PR 08:00
PROVIDERS: PCP Family Medicine; Referring Provider Family Medicine; Visit Provider Family Medicine
DX: Z00.00 Encounter for general adult medical examination without abnormal findings (principal)

== ENCOUNTER 2024-03-31 08:00 | Outpatient (RCR) | payer SELFPAY ==
[2020-06-22 07:05] VITALS: BMI 38.3
== END 2024-04-01 23:59 ==
LOC: PR 08:00
PROVIDERS: PCP Family Medicine; Referring Provider Family Medicine; Visit Provider Family Medicine
DX: Z00.00 Encounter for general adult medical examination without abnormal findings (principal)

== ENCOUNTER 2024-04-28 08:00 | Outpatient (RCR) | payer SELFPAY ==
[2020-06-22 07:05] VITALS: BMI 38.3
== END 2024-04-29 23:59 ==
LOC: PR 08:00
PROVIDERS: PCP Family Medicine; Referring Provider Family Medicine; Visit Provider Family Medicine
DX: Z00.00 Encounter for general adult medical examination without abnormal findings (principal)

== ENCOUNTER 2024-05-26 08:00 | Outpatient (RCR) | payer SELFPAY ==
[2020-06-22 07:05] VITALS: BMI 38.3
== END 2024-05-30 23:59 ==
LOC: PR 08:00
PROVIDERS: PCP Family Medicine; Referring Provider Family Medicine; Visit Provider Family Medicine
DX: Z00.00 Encounter for general adult medical examination without abnormal findings (principal)

== ENCOUNTER 2024-06-28 08:00 | Outpatient (RCR) | payer SELFPAY ==
[2020-06-22 07:05] VITALS: BMI 38.3
== END 2024-06-29 23:59 ==
LOC: PR 08:00
PROVIDERS: PCP Family Medicine; Referring Provider Family Medicine; Visit Provider Family Medicine
DX: Z00.00 Encounter for general adult medical examination without abnormal findings (principal)

== ENCOUNTER 2024-07-28 08:00 | Outpatient (RCR) | payer SELFPAY ==
[2020-06-22 07:05] VITALS: BMI 38.3
== END 2024-07-30 23:59 ==
LOC: PR 08:00
PROVIDERS: PCP Family Medicine; Referring Provider Family Medicine; Visit Provider Family Medicine
DX: Z00.00 Encounter for general adult medical examination without abnormal findings (principal)

== ENCOUNTER 2024-08-23 08:00 | Outpatient (RCR) | payer SELFPAY ==
[2020-06-22 07:05] VITALS: BMI 38.3
== END 2024-08-29 23:59 ==
LOC: PR 08:00
PROVIDERS: PCP Family Medicine; Referring Provider Family Medicine; Visit Provider Family Medicine
DX: Z00.00 Encounter for general adult medical examination without abnormal findings (principal)

== ENCOUNTER 2024-09-29 08:00 | Outpatient (RCR) | payer SELFPAY ==
[2020-06-22 07:05] VITALS: BMI 38.3
== END 2024-09-29 23:59 ==
LOC: PR 08:00
PROVIDERS: PCP Family Medicine; Referring Provider Family Medicine; Visit Provider Family Medicine
DX: Z00.00 Encounter for general adult medical examination without abnormal findings (principal)

== ENCOUNTER 2024-10-27 08:00 | Outpatient (RCR) | payer SELFPAY ==
[2020-06-22 07:05] VITALS: BMI 38.3
== END 2024-10-30 23:59 ==
LOC: PR 08:00
PROVIDERS: PCP Family Medicine; Referring Provider Family Medicine; Visit Provider Family Medicine
DX: Z00.00 Encounter for general adult medical examination without abnormal findings (principal)

== ENCOUNTER 2024-11-29 08:00 | Outpatient (RCR) | payer SELFPAY ==
[2020-06-22 07:05] VITALS: BMI 38.3
== END 2024-11-29 23:59 ==
LOC: PR 08:00
PROVIDERS: PCP Family Medicine; Referring Provider Family Medicine; Visit Provider Family Medicine
DX: Z00.00 Encounter for general adult medical examination without abnormal findings (principal)

== ENCOUNTER 2024-12-29 08:00 | Outpatient (RCR) | payer SELFPAY ==
[2020-06-22 07:05] VITALS: BMI 38.3
== END 2024-12-30 23:59 ==
LOC: PR 08:00
PROVIDERS: PCP Family Medicine; Referring Provider Family Medicine; Visit Provider Family Medicine
DX: Z00.00 Encounter for general adult medical examination without abnormal findings (principal)

== ENCOUNTER 2025-01-24 08:00 | Outpatient (RCR) | payer SELFPAY ==
[2020-06-22 07:05] VITALS: BMI 38.3
== END 2025-01-29 23:59 ==
LOC: PR 08:00
PROVIDERS: PCP Family Medicine; Referring Provider Family Medicine; Visit Provider Family Medicine
DX: Z00.00 Encounter for general adult medical examination without abnormal findings (principal)

== ENCOUNTER 2025-02-28 08:00 | Outpatient (RCR) | payer SELFPAY ==
[2020-06-22 07:05] VITALS: BMI 38.3
== END 2025-03-01 23:59 ==
LOC: PR 08:00
PROVIDERS: PCP Family Medicine; Referring Provider Family Medicine; Visit Provider Family Medicine
DX: Z00.00 Encounter for general adult medical examination without abnormal findings (principal)